=== PATIENT | male | born 1940 | race American Indian/Alaskan Native ===

== ENCOUNTER 2018-01-24 10:15 | Day surgery (SDC) | payer MEDICARE, MEDICAID ==
[2017-12-22 20:41] VITALS: BMI 24.0
[~2018-01-24 10:15] MED LIST: Lidocaine Hydrochloride 5 ML INJ ONE; Midazolam 2 MG/2 ML VIAL ONE; Propofol 10 mg/ml Inj (20 ML) ONE
[2018-01-24] MEDS ORDERED: Gentamicin 80 mg in 0.9% NS 80 MG/100 ML BAG IVPB ONE ×2 (10:47→11:00)
[2018-01-24] MEDS ORDERED: cefTRIAXone 1 gm 1 GM/100 ML BAG IVPB ONE (10:47)
[2018-01-24] MEDS ORDERED: Lidocaine 2% Jelly (Uro-Jet) ONE (10:47)
[2018-01-24] MEDS ORDERED: HYDROmorphone 0.5 mg/0.5 ml ISec IVP PRN (11:43)
[2018-01-24 12:20] LABS: URINE BILIRUBIN NEGATIVE (NEGATIVE); URINE BLOOD 2+ (NEGATIVE); URINE CLARITY Clear (Clear); URINE COLOR Yellow (YELLOW); URINE GLUCOSE (UA) NORMAL (Normal); URINE LEUKOCYTE ESTERASE TRACE Leu/uL (Negative); URINE PROTEIN NEGATIVE (NEGATIVE); URINE UROBILINOGEN NORMAL mg/dL (0.2-1.0)
[2018-01-24 13:08] VITALS: O2SAT 96
[2018-01-24 15:06] VITALS: BP 154/76; PULSE 68; RESP 18; TEMP 97.8
--- NOTE | 2018-01-24 22:02 | OP ---
PROCEDURE DATE: 01/24/2018 PREOPERATIVE DIAGNOSIS: Dysuria. POSTOPERATIVE DIAGNOSES: Benign prostatic hypertrophy and hemorrhagic prostate. PROCEDURE: Cystoscopy. SURGEON: Trevor Wiggins MD DESCRIPTION OF PROCEDURE: The patient was premedicated with 80 mg of gentamicin and 1 g of Rocephin IV piggyback, brought to the OR, and placed under anesthesia in lithotomy position with care taken upon placing him in the stirrups because of previous left knee surgery. Cystoscopy was uneventful. A 22-Jordanian scope was introduced per urethra. The prostate was obstructing and had a hemorrhagic mucosa that was noted. The bladder itself was remarkably normal. There was minimal trabeculation. No tumors or calculi were seen. Both orifices were normal. Initial urine residual of about 100 mL was cleared and sent for urinalysis, culture and sensitivity and cytology. There was minimal oozing of the prostate after the procedure and so, the patient was sent to the recovery room with the Fuller catheter for tamponade, and hopefully this could be removed prior to his discharge later today. The patient tolerated the procedure well. Trevor Wiggins MD
== END 2018-01-24 15:00 | disposition home or self-care (01) ==
LOC: C.SDS 10:15
PROVIDERS: ATTEND Urology
DX: N40.0 Benign prostatic hyperplasia without lower urinary tract symptoms (principal); R30.0 Dysuria; N42.1 Congestion and hemorrhage of prostate

== ENCOUNTER → 2018-07-12 | Outpatient (CLI) | payer MEDICARE, MEDICAID | LOC: C.VASC 10:08 ==

== ENCOUNTER 2018-07-24 09:53 | Outpatient (CLI) | payer MEDICARE, MEDICAID | END 2018-07-24 09:54 | disposition home or self-care (01) | LOC: C.CTH 09:53 ==

== ENCOUNTER 2018-08-06 09:18 | Inpatient (IN) | payer MEDICARE, MEDICAID ==
[2018-08-06 09:47] VITALS: BMI 25.7
[2018-08-06] MEDS ORDERED: Sodium Chloride 0.9% 1,000 ML IV ONE (09:56)
--- NOTE | 2018-08-06 10:15 | C.PDOC ---
History Of Present Illness 78 y/o male brought to ER from group home for evaluation and possible admission for hydration. referred him to the ER because patient has angiogram tomorrow. wanted him to be hydrated for the procedure. Patient states that he has history of stroke in 2009. Patient reports that he has left-sided weakness s/p stroke. He notes that he walks with cane for short periods of time. Denies having fever,chills, CP, and SOB. Time Seen by Provider: 08/06/18 09:40 Chief Complaint (Nursing): Medical Clearance History Per: Patient History/Exam Limitations: no limitations Onset/Duration Of Symptoms: Days Current Symptoms Are (Timing): Still Present Severity: Moderate Past Medical History Reviewed: Historical Data, Nursing Documentation, Vital Signs Vital Signs: Last Vital Signs Temp 97.6 F 08/06/18 09:39 Pulse 81 08/06/18 09:39 Resp 17 08/06/18 09:39 BP 133/68 08/06/18 09:39 Pulse Ox 97 08/06/18 09:39 - Medical History PMH: Anemia, Anxiety, Dementia, Depression, Fractures, HTN, Parkinson's Disease (no tremors), Seizures Denies: Diabetes, Hepatitis, Chronic Kidney Disease, Sexually Transmitted Disease Surgical History: No Surg Hx - [facility] Procedures GROUP PSYCHOTHERAPY (12/22/17) INDIVIDUAL PSYCHOTHERAPY, BEHAVIORAL (06/24/15) INDIVIDUAL PSYCHOTHERAPY, COGNITIVE-BEHAVIORAL (12/22/17) Family History: States: Hypertension - Social History Hx Alcohol Use: Yes Hx Substance Use: No Review Of Systems Except As Marked, All Systems Reviewed And Found Negative. Constitutional: Negative for: Fever, Chills Cardiovascular: Negative for: Chest Pain Respiratory: Negative for: Shortness of Breath Physical Exam - Physical Exam Appears: Non-toxic, No Acute Distress Skin: Normal Color, Warm, Dry Head: Atraumatic, Normacephalic Eye(s): bilateral: Normal Inspection Nose: Normal Oral Mucosa: Moist Neck: Supple Chest: Symmetrical Cardiovascular: Rhythm Regular Respiratory: Normal Breath Sounds, No Rales, No Rhonchi, No Wheezing Gastrointestinal/Abdominal: Normal Exam, Soft, No Tenderness, No Guarding, No Rebound Extremity: Normal ROM Neurological/Psych: Other (left sided weakness,contracted left hand and left foot drop) Gait: Unable To Assess ED Course And Treatment - Laboratory Results Result Diagrams: 08/06/18 10:26 08/06/18 10:26 Lab Interpretation: No Acute Changes ECG: Interpreted By Me ECG Rhythm: Sinus Rhythm, 1st Degree HB, Nonspecific Changes ECG Interpretation: No Acute Changes Rate From EC O2 Sat by Pulse Oximetry: 97 (RA) Pulse Ox Interpretation: Normal - Radiology CXR: Interpreted by Me CXR Interpretation: Yes: No Acute Disease Progress Note: Treated with IVF NSS and rocephin 1 GM IV. Case discussed with Dr Gage who request medical admission for hydration and angiogram tomorrow Reassessment Condition: Unchanged - Physician Consult Information Physician Contacted: Jenaro Garcia Outcome Of Conversation: obs admission Medical Decision Making Medical Decision Making: Plan: --Labs --UA --ECG --CXR --IV Fluids Disposition Discussed With Dr.: Jenaro Garcia Doctor Will See Patient In The: Hospital - Disposition Disposition: HOSPITALIZED Disposition Time: 11:45 Condition: STABLE - POA Present On Arrival: None - Clinical Impression Clinical Impression: Dehydration - PA / EMT/PARAMEDIC / Resident Statement MD/DO has reviewed & agrees with the documentation as recorded. - Scribe Statement The provider has reviewed the documentation as recorded by the Scribe Aldo Mustapha Provider Attestation All medical record entries made by the Scribe were at my direction and personally dictated by me. I have reviewed the chart and agree that the record accurately reflects my personal performance of the history, physical exam, medical decision making, and the department course for this patient. I have also personally directed, reviewed, and agree with the discharge instructions and disposition. Decision To Admit - Pt Status Changed To: Hospital Disposition Of: Observation - . Bed Request Type: Regular Admitting Physician: Jenaro Garcia Patient Diagnosis: Dehydration
[2018-08-06 10:31] LABS: EOS # 0.3 K/uL (0.0-0.7); EOS % 6.1 % (0.0-4.0); HEMOGLOBIN 14.2 g/dL (12.0-18.0); LYMPH # 1.8 K/uL (1.0-4.3); LYMPH % 36.4 % (20.0-40.0); MEAN CELL VOLUME 92.8 fL (80.0-94.0); MEAN CORPUSCULAR HGB CONC 33.4 g/dL (33.0-37.0); MEAN PLATELET VOLUME 7.4 fL (7.2-11.7); MONO # 0.4 K/uL (0.0-0.8); NEUT # 2.4 K/uL (1.8-7.0); NEUT % 48.5 % (50.0-75.0); NRBC % 0.1 % (0.0-2.0); RBC 4.59 Mil/uL (4.40-5.90); RED CELL DISTRIBUTION WIDTH 14.2 % (11.5-14.5); WHITE BLOOD COUNT 4.8 K/uL (4.8-10.8)
[2018-08-06 10:34] LABS: SQUAMOUS EPITHIAL < 1 /hpf (0-5); URINE BACTERIA MOD (<OCC); URINE BILIRUBIN NEGATIVE (NEGATIVE); URINE BLOOD 1+ (NEGATIVE); URINE CLARITY Hazy (Clear); URINE COLOR Yellow (YELLOW); URINE GLUCOSE (UA) 2+ mg/dL (Normal); URINE LEUKOCYTE ESTERASE 3+ Leu/uL (Negative); URINE PROTEIN NEGATIVE (NEGATIVE); URINE UROBILINOGEN NORMAL mg/dL (0.2-1.0)
[2018-08-06 10:37] LABS: INR 1.2; PROTHROMBIN TIME 12.6 SECONDS (9.7-12.2)
[2018-08-06 10:41] LABS: ALB/GLOB RATIO 1.1 (1.0-2.1); ALBUMIN 4.2 g/dL (3.5-5.0); CALCIUM 9.1 mg/dl (8.6-10.4)
[2018-08-06] MEDS ORDERED: cefTRIAXone IV 1 gm in Dextros 50 ML IV ONE (10:43)
[2018-08-06] MEDS ORDERED: Sodium Chloride 0.9% 1,000 ML ONE (11:16)
[2018-08-06] MEDS ORDERED: Sodium Chloride 0.9% 1,000 ML IV SCH ×2 (12:15)
[2018-08-06] MEDS ORDERED: Insulin Detemir 100 units/ml Vial (Levemir) SC SCH (13:00)
--- NOTE | 2018-08-06 13:05 | CP.PCM.HP ---
<Kishan Gutierrez E - Last Filed: 08/06/18 16:49> History of Present Illness - History of Present Illness History of Present Illness: CC: Left toe pain Patient is a poor historian regarding reason for hospitalization HPI: Patient is a 78 year old male with past medical history of CVA (2009) with left-sided weakness, diabetes, seizures, HTN, HLD, BPH, gastritis, depression and anemia, who presents to the ED as per request of vascular surgeon, Dr. Gage. Initially, there was plan by vascular for bilateral LE angiogram outpatient due to PVD. However, due to recent JANETH, decision was made for hospitalization in order to hydrate patient; improve JANETH and perform inpatient angiogram. During this encounter, patient states that he is doing well and has no acute issues. Upon ROS, patient admits to dysuria but denies any symptoms of fever, chills, nausea, vomiting, flank pain, hematuria, chest pain, palpitations, shortness of breath, dizziness, bowel changes. PMHx: CVA (2009) with left-sided weakness, diabetes, seizures, HTN, HLD, BPH, gastritis, depression and anemia, PSHx: Denies FHx: Denies Medications: Insulin sliding scale, lamictal 150mg PO BID, Levemir 16 units Q12HRS, Lexapro 10mg PO daily, Maginex 615mg PO once, metoprolol tartate 25mg PO Q12H, Aluminum & Mg Hyroxide [id number]/5ml, Norvasc 5mg PO daily, Pravastatin 10mg PO HS, Ferrous sulfate 325mg PO BID, Finastride 5mg PO daily, Flomax 0.4mg PO daily, Protonix 40mg PO QD, remeron 15mg PO HS Allergies: NKDA Social Hx: Lives in a half-way, retired diesel truck technician and cook. Tobacco use for 20-30 years (3PPD), former ETOH use during the weekend and denies illicit drug use Present on Admission - Present on Admission Any Indicators Present on Admission: No Review of Systems - Constitutional Constitutional: absent: Chills, Fever, Headache - EENT Eyes: absent: Blurred Vision Ears: absent: Dizziness - Cardiovascular Cardiovascular: absent: Chest Pain, Dyspnea, Dyspnea on Exertion, Leg Edema, Syncope - Respiratory Respiratory: absent: Cough, Dyspnea on Exertion, Wheezing - Gastrointestinal Gastrointestinal: absent: Abdominal Pain, Change in Stool Character, Constipation, Hematochezia, Nausea, Vomiting - Genitourinary Genitourinary: Dysuria - Neurological Neurological: absent: Dizziness, Numbness, Headaches, Weakness - Endocrine Endocrine: absent: Fatigue, Palpitations Past Patient History - Infectious Disease Hx of Infectious Diseases: None - Tetanus Immunizations Tetanus Immunization: Unknown - Past Medical History & Family History Past Medical History?: Yes - Past Social History Smoking Status: Former Smoker - CARDIAC Hx Hypertension: Yes - PULMONARY Hx Respiratory Disorders: No - NEUROLOGICAL Hx Dementia: Yes Hx Parkinson's Disease: Yes (no tremors) Hx Seizures: Yes - HEENT Hx HEENT Problems: No - RENAL Hx Chronic Kidney Disease: No - ENDOCRINE/METABOLIC Hx Endocrine Disorders: Yes Hx Diabetes Mellitus Type 2: Yes ("DUE TO UNDERLYING CONDITION"(NO DIABETIC MED. NOTED)) - HEMATOLOGICAL/ONCOLOGICAL Hx Anemia: Yes - INTEGUMENTARY Hx Dermatological Problems: No - MUSCULOSKELETAL/RHEUMATOLOGICAL Hx Fractures: Yes - GASTROINTESTINAL Hx Gastrointestinal Disorders: Yes Other/Comment: DX: DYSPHAGIA - GENITOURINARY/GYNECOLOGICAL Hx Sexually Transmitted Disorders: No - PSYCHIATRIC Hx Anxiety: Yes Hx Depression: Yes Hx Substance Use: No - SURGICAL HISTORY Hx Surgeries: No - ANESTHESIA Hx Anesthesia: No Meds Allergies/Adverse Reactions: Allergies Allergy/AdvReac Type Severity Reaction Status Date / Time No Known Allergies Allergy Verified 12/22/17 20:41 Physical Exam - Constitutional Appears: No Acute Distress - Head Exam Head Exam: ATRAUMATIC, NORMAL INSPECTION - Eye Exam Eye Exam: EOMI, Normal appearance - ENT Exam ENT Exam: Mucous Membranes Moist - Respiratory Exam Respiratory Exam: Clear to Auscultation Bilateral, NORMAL BREATHING PATTERN. absent: Prolonged Expiratory Phase, Rhonchi, Wheezes, Respiratory Distress - Cardiovascular Exam Cardiovascular Exam: REGULAR RHYTHM, +S1, +S2. absent: Systolic Murmur - GI/Abdominal Exam GI & Abdominal Exam: Normal Bowel Sounds, Soft. absent: Distended, Firm, Tenderness - Extremities Exam Extremities exam: Positive for: normal inspection. Negative for: calf tenderness, pedal edema - Back Exam Back exam: absent: CVA tenderness (L), CVA tenderness (R) Additional comments: Right LE: DP and PT audible with doppler Left LE: DP audible with doppler - Neurological Exam Neurological exam: Alert, Oriented x3 - Psychiatric Exam Psychiatric exam: Normal Affect - Skin Skin Exam: Normal Color Results - Vital Signs Recent Vital Signs: Last Vital Signs Temp 97.6 F 08/06/18 11:40 Pulse 76 08/06/18 11:40 Resp 16 08/06/18 11:40 BP 146/69 08/06/18 11:40 Pulse Ox 97 08/06/18 11:46 - Labs Result Diagrams: 08/06/18 10:26 08/06/18 10:26 Labs: Laboratory Results - last 24 hr 08/06/18 08/06/18 08/06/18 10:26 10:26 10:26 WBC 4.8 RBC 4.59 Hgb 14.2 Hct 42.6 MCV 92.8 MCH 31.0 MCHC 33.4 RDW 14.2 Plt Count 203 MPV 7.4 Neut % (Auto) 48.5 L Lymph % (Auto) 36.4 [place] % (Auto) 8.0 Eos % (Auto) 6.1 H Baso % (Auto) 1.0 Neut # (Auto) 2.4 Lymph # (Auto) 1.8 [place] # (Auto) 0.4 Eos # (Auto) 0.3 Baso # (Auto) 0.0 PT INR Sodium 137 Potassium 4.2 Chloride 104 Carbon Dioxide 28 Anion Gap 10 BUN 20 Creatinine 1.9 H Est GFR ( Amer) 42 Est GFR (Non-Af Amer) 35 POC Glucose (mg/dL) Random Glucose 201 H Calcium 9.1 Total Bilirubin 0.3 AST 23 ALT 17 L Alkaline Phosphatase 82 Total Protein 8.2 Albumin 4.2 Globulin 3.9 Albumin/Globulin Ratio 1.1 Urine Color Yellow Urine Clarity Hazy Urine pH 5.0 Ur Specific [place] 1.009 Urine Protein Negative Urine Glucose (UA) 2+ H Urine Ketones Negative Urine Blood 1+ H Urine Nitrate Negative Urine Bilirubin Negative Urine Urobilinogen Normal Ur Leukocyte Esterase 3+ H Urine WBC (Auto) 153 H Urine RBC (Auto) 3 Ur Squamous Epith Cells < 1 Urine Bacteria Mod H Blood Type Antibody Screen 08/06/18 08/06/18 08/06/18 10:26 10:26 12:23 WBC RBC Hgb Hct MCV MCH MCHC RDW Plt Count MPV Neut % (Auto) Lymph % (Auto) [place] % (Auto) Eos % (Auto) Baso % (Auto) Neut # (Auto) Lymph # (Auto) [place] # (Auto) Eos # (Auto) Baso # (Auto) PT 12.6 H INR 1.2 Sodium Potassium Chloride Carbon Dioxide Anion Gap BUN Creatinine Est GFR ( Amer) Est GFR (Non-Af Amer) POC Glucose (mg/dL) 201 H Random Glucose Calcium Total Bilirubin AST ALT Alkaline Phosphatase Total Protein Albumin Globulin Albumin/Globulin Ratio Urine Color Urine Clarity Urine pH Ur Specific [place] Urine Protein Urine Glucose (UA) Urine Ketones Urine Blood Urine Nitrate Urine Bilirubin Urine Urobilinogen Ur Leukocyte Esterase Urine WBC (Auto) Urine RBC (Auto) Ur Squamous Epith Cells Urine Bacteria Blood Type O POSITIVE Antibody Screen Negative Assessment & Plan (1) PVD (peripheral vascular disease) Assessment and Plan: -Left Hallux pain Consultation: - Vascular, Dr. Gage * B/L LE angiogram 08/07/18 Status: Acute (2) Acute kidney injury Assessment and Plan: GFR: 42 Possibly 2/2 dehydration D51/2NS @ 80mls/hr as per surgery Status: Acute (3) UTI (urinary tract infection) Assessment and Plan: Afebrile Labs: * UA: LE (3+), WBC (153) and nitrite negative * F/u UC Medication: - Rocephin 1gm IV Q24H - Florastor 250mg PO BID Status: Acute (4) HTN (hypertension) Assessment and Plan: Continue home medications: - Norvasc 5mg PO daily - Metoprolol tartate 25mg PO Q12H Status: Acute (5) Diabetes mellitus Assessment and Plan: Accuchecks Levemir 16 units SC Q12H ISS- Low dose Status: Acute (6) History of seizure Assessment and Plan: Continue home medication: - Lamictal 150mg PO BID Status: Acute (7) Depression Assessment and Plan: Lexapro 10mg PO daily Remeron 15mg PO HS Status: Acute (8) BPH (benign prostatic hyperplasia) Assessment and Plan: Flomax 0.4mg PO daily Finastride 5mg PO daily Status: Acute (9) Anemia Assessment and Plan: H/H stable Ferrous sulfate 325mg PO BID Status: Acute (10) Hx of gastritis Assessment and Plan: Protonix 40mg PO daily Status: Acute (11) Hyperlipidemia Assessment and Plan: Crestor 2.5mg PO HS Status: Acute (12) Prophylactic measure Assessment and Plan: GI: Protonix 40mg PO daily DVT: Chemical agent not initiated due angiogram tomorrow All plans and management discussed with Dr. Garcia Status: Acute <MattJenaro ocampo - Last Filed: 08/08/18 18:00> Results - Vital Signs Recent Vital Signs: Last Vital Signs Temp 98 F 08/08/18 16:00 Pulse 58 L 08/08/18 16:00 Resp 20 08/08/18 16:00 BP 149/74 08/08/18 16:00 Pulse Ox 97 08/08/18 16:00 - Labs Result Diagrams: 08/08/18 05:09 08/08/18 05:09 Labs: Laboratory Results - last 24 hr 08/07/18 08/08/18 08/08/18 21:22 05:09 05:09 WBC 5.2 RBC 4.51 Hgb 13.7 Hct 41.3 MCV 91.6 MCH 30.5 MCHC 33.3 RDW 14.3 Plt Count 175 MPV 7.4 Neut % (Auto) 44.8 L Lymph % (Auto) 37.5 [place] % (Auto) 9.3 Eos % (Auto) 7.8 H Baso % (Auto) 0.6 Neut # (Auto) 2.3 Lymph # (Auto) 2.0 [place] # (Auto) 0.5 Eos # (Auto) 0.4 Baso # (Auto) 0.0 Sodium 137 Potassium 4.2 Chloride 108 H Carbon Dioxide 24 Anion Gap 9 L BUN 14 Creatinine 1.5 Est GFR ( Amer) 55 Est GFR (Non-Af Amer) 45 POC Glucose (mg/dL) 157 H Random Glucose 136 H Calcium 9.1 Phosphorus 3.5 Magnesium 1.8 Total Bilirubin 0.3 AST 23 ALT 19 L D Alkaline Phosphatase 72 Total Protein 7.5 Albumin 3.5 Globulin 3.9 Albumin/Globulin Ratio 0.9 L 25-OH Vitamin D Total 08/08/18 08/08/18 08/08/18 05:09 06:49 13:48 WBC RBC Hgb Hct MCV MCH MCHC RDW Plt Count MPV Neut % (Auto) Lymph % (Auto) [place] % (Auto) Eos % (Auto) Baso % (Auto) Neut # (Auto) Lymph # (Auto) [place] # (Auto) Eos # (Auto) Baso # (Auto) Sodium Potassium Chloride Carbon Dioxide Anion Gap BUN Creatinine Est GFR ( Amer) Est GFR (Non-Af Amer) POC Glucose (mg/dL) 113 H 128 H Random Glucose Calcium Phosphorus Magnesium Total Bilirubin AST ALT Alkaline Phosphatase Total Protein Albumin Globulin Albumin/Globulin Ratio 25-OH Vitamin D Total 14.7 L 08/08/18 16:31 WBC RBC Hgb Hct MCV MCH MCHC RDW Plt Count MPV Neut % (Auto) Lymph % (Auto) [place] % (Auto) Eos % (Auto) Baso % (Auto) Neut # (Auto) Lymph # (Auto) [place] # (Auto) Eos # (Auto) Baso # (Auto) Sodium Potassium Chloride Carbon Dioxide Anion Gap BUN Creatinine Est GFR ( Amer) Est GFR (Non-Af Amer) POC Glucose (mg/dL) 114 H Random Glucose Calcium Phosphorus Magnesium Total Bilirubin AST ALT Alkaline Phosphatase Total Protein Albumin Globulin Albumin/Globulin Ratio 25-OH Vitamin D Total Attending/Attestation - Attestation I have personally seen and examined this patient.: Yes I have fully participated in the care of the patient.: Yes I have reviewed all pertinent clinical information: Yes Notes (Text): Seen and examined with the resident Patient has no complain,looks dry He has history of CVA (2009) with left-sided weakness, diabetes, seizures, HTN, HLD, BPH, gastritis, depression and anemia He was brought in for IV hydration to improve his kidney before bilateral LE angiogram . continue hydration follow creatinine
--- NOTE | 2018-08-06 13:25 | RAD ---
Date of service: 08/06/2018 PROCEDURE: CHEST RADIOGRAPH, 1 VIEW HISTORY: SOB COMPARISON: None available. FINDINGS: LUNGS: Clear. PLEURA: No pneumothorax or pleural fluid seen. CARDIOVASCULAR: No aortic atherosclerotic calcification present. Normal. OSSEOUS STRUCTURES: No significant abnormalities. VISUALIZED UPPER ABDOMEN: Normal. OTHER FINDINGS: None. IMPRESSION: No active disease.
[2018-08-06] MEDS: Dextrose 5%/0.45% NS 1,000 ML IV SCH (15:07)
[2018-08-06] MEDS: Acetylcysteine 20% Inhal Soln (4ml) PO SCH (15:09)
[2018-08-06 16:03] VITALS: RESP 20
[2018-08-06] MEDS: (Novolog) Insulin Aspart, Recombinant 100 u/ml 10 ml vial SC SCH ×2 (17:10→21:49)
[2018-08-06] MEDS: Saccharomyces Boulardi 250 mg Cap PO SCH (17:43)
[2018-08-06] MEDS: Rosuvastatin Calcium 2.5 mg Tab PO SCH (22:00)
[2018-08-07] MEDS: Acetylcysteine 20% Inhal Soln (4ml) PO SCH ×3 (03:23→23:15)
[2018-08-07] MEDS: Dextrose 5%/0.45% NS 1,000 ML IV SCH (03:24)
[2018-08-07 06:57] LABS: ALBUMIN 3.7 g/dL (3.5-5.0); CALCIUM 8.9 mg/dl (8.6-10.4)
[2018-08-07 07:07] LABS: BASO % 0.6 % (0.0-2.0); EOS # 0.4 K/uL (0.0-0.7); EOS % 7.6 % (0.0-4.0); HEMOGLOBIN 13.6 g/dL (12.0-18.0); LYMPH # 2.1 K/uL (1.0-4.3); LYMPH % 40.5 % (20.0-40.0); MEAN CELL VOLUME 91.9 fL (80.0-94.0); MEAN CORPUSCULAR HEMOGLOBIN 30.7 pg (27.0-31.0); MEAN CORPUSCULAR HGB CONC 33.4 g/dL (33.0-37.0); MEAN PLATELET VOLUME 7.3 fL (7.2-11.7); MONO # 0.5 K/uL (0.0-0.8); MONO % 9.9 % (0.0-10.0); NEUT # 2.2 K/uL (1.8-7.0); NEUT % 41.4 % (50.0-75.0); NRBC % 0.1 % (0.0-2.0); RBC 4.41 Mil/uL (4.40-5.90); RED CELL DISTRIBUTION WIDTH 13.9 % (11.5-14.5); WHITE BLOOD COUNT 5.3 K/uL (4.8-10.8)
[2018-08-07] MEDS: (Novolog) Insulin Aspart, Recombinant 100 u/ml 10 ml vial SC SCH ×4 (07:54→21:54)
[2018-08-07] MEDS ORDERED: Pneumococcal 23-Valent Vaccine IM ONE (10:00)
[2018-08-07] MEDS: Vitamin B Complex/Vitamin C Tab PO SCH (10:07)
[2018-08-07] MEDS: Saccharomyces Boulardi 250 mg Cap PO SCH ×2 (10:07→18:27)
[2018-08-07] MEDS: Insulin Detemir 100 units/ml Vial (Levemir) SC SCH ×2 (10:08→22:16)
[2018-08-07] MEDS: Pantoprazole 40 mg EC Tab PO SCH (10:08)
--- NOTE | 2018-08-07 10:44 | CP.PCM.PN ---
Subjective - Date & Time of Evaluation Date of Evaluation: 08/07/18 Time of Evaluation: 10:43 - Subjective Subjective: procedure rescheduled due to equipment issues on for tomorrow Objective - Vital Signs/Intake and Output Vital Signs (last 24 hours): Temp Pulse Resp BP Pulse Ox 98.1 F 73 20 150/72 96 08/07/18 07:00 08/07/18 07:00 08/07/18 07:00 08/07/18 10:05 08/07/18 07:00 Intake and Output: 08/07/18 08/07/18 06:59 18:59 Intake Total 1710 Output Total 1050 Balance 660 - Medications Medications: Current Medications Amlodipine Besylate (Norvasc) 5 mg PO DAILY [facility] Last Admin: 08/07/18 10:05 Dose: 5 mg Escitalopram Oxalate (Lexapro) 10 mg PO DAILY [facility] Last Admin: 08/07/18 10:08 Dose: Not Given Ferrous Sulfate (Feosol) 325 mg PO BID [facility] Last Admin: 08/07/18 10:07 Dose: Not Given Ceftriaxone Sodium (Rocephin Iv 1 Gm Duplex) 50 mls @ 100 mls/hr IVPB DAILY [facility]; Protocol Dextrose/Sodium Chloride (Dextrose 5%/0.45% Ns 1000 Ml) 1,000 mls @ 80 mls/hr IV .[id number] [facility] Last Admin: 08/07/18 03:24 Dose: 80 mls/hr Insulin Aspart (Novolog) 0 unit SC ACHS [facility]; Protocol Last Admin: 08/07/18 07:54 Dose: Not Given Insulin Detemir (Levemir) 16 unit SC Q12H [facility] Last Admin: 08/07/18 10:08 Dose: Not Given Lamotrigine (Lamictal) 100 mg PO BID [facility] Last Admin: 08/07/18 10:07 Dose: Not Given Lamotrigine (Lamictal) 50 mg PO BID [facility] Last Admin: 08/07/18 10:07 Dose: Not Given Metoprolol Tartrate (Lopressor) 25 mg PO Q12 [facility] Last Admin: 08/07/18 10:05 Dose: 25 mg Mirtazapine (Remeron) 15 mg PO HS [facility] Last Admin: 08/06/18 21:59 Dose: 15 mg Pantoprazole Sodium (Protonix Ec Tab) 40 mg PO DAILY [facility] Last Admin: 08/07/18 10:08 Dose: Not Given Rosuvastatin Calcium (Crestor) 2.5 mg PO HS [facility] Last Admin: 08/06/18 22:00 Dose: 2.5 mg Saccharomyces Boulardii (Florastor) 250 mg PO BID [facility] Last Admin: 08/07/18 10:07 Dose: Not Given Tamsulosin HCl (Flomax) 0.4 mg PO DAILY [facility] Last Admin: 08/07/18 10:07 Dose: Not Given Vitamin B Complex/Vitamin C (Berocca) 1 tab PO DAILY [facility] Last Admin: 08/07/18 10:07 Dose: Not Given - Labs Labs: 08/07/18 06:31 08/07/18 06:31 PT 12.6 SECONDS (9.7-12.2) H 08/06/18 10:26 INR 1.2 08/06/18 10:26
--- NOTE | 2018-08-07 10:54 | CP.PCM.PN ---
<Rachel Lujan P - Last Filed: 08/07/18 21:05> Subjective - Date & Time of Evaluation Date of Evaluation: 08/07/18 Time of Evaluation: 09:00 - Subjective Subjective: Progress note for Dr. Garcia. Patient seen and examined at bedside. Angiogram rescheduled for tomorrow. Patient has no complaints at the time of exam. States he is eating well, voiding and stooling. Denies chest pain, SOB, nausea, vomiting, abdominal pain, d iarrhea, extremity pain, headache. Objective - Vital Signs/Intake and Output Vital Signs (last 24 hours): Temp Pulse Resp BP Pulse Ox 98.1 F 73 20 150/72 96 08/07/18 07:00 08/07/18 07:00 08/07/18 07:00 08/07/18 10:05 08/07/18 07:00 Intake and Output: 08/07/18 08/07/18 06:59 18:59 Intake Total 1710 Output Total 1050 Balance 660 - Medications Medications: Current Medications Amlodipine Besylate (Norvasc) 5 mg PO DAILY [facility] Last Admin: 08/07/18 10:05 Dose: 5 mg Escitalopram Oxalate (Lexapro) 10 mg PO DAILY [facility] Last Admin: 08/07/18 10:08 Dose: Not Given Ferrous Sulfate (Feosol) 325 mg PO BID [facility] Last Admin: 08/07/18 10:07 Dose: Not Given Ceftriaxone Sodium (Rocephin Iv 1 Gm Duplex) 50 mls @ 100 mls/hr IVPB DAILY [facility]; Protocol Dextrose/Sodium Chloride (Dextrose 5%/0.45% Ns 1000 Ml) 1,000 mls @ 80 mls/hr IV .[id number] [facility] Last Admin: 08/07/18 03:24 Dose: 80 mls/hr Insulin Aspart (Novolog) 0 unit SC ACHS [facility]; Protocol Last Admin: 08/07/18 07:54 Dose: Not Given Insulin Detemir (Levemir) 16 unit SC Q12H [facility] Last Admin: 08/07/18 10:08 Dose: Not Given Lamotrigine (Lamictal) 100 mg PO BID [facility] Last Admin: 08/07/18 10:07 Dose: Not Given Lamotrigine (Lamictal) 50 mg PO BID [facility] Last Admin: 08/07/18 10:07 Dose: Not Given Metoprolol Tartrate (Lopressor) 25 mg PO Q12 [facility] Last Admin: 08/07/18 10:05 Dose: 25 mg Mirtazapine (Remeron) 15 mg PO HS [facility] Last Admin: 08/06/18 21:59 Dose: 15 mg Pantoprazole Sodium (Protonix Ec Tab) 40 mg PO DAILY [facility] Last Admin: 08/07/18 10:08 Dose: Not Given Rosuvastatin Calcium (Crestor) 2.5 mg PO HS [facility] Last Admin: 08/06/18 22:00 Dose: 2.5 mg Saccharomyces Boulardii (Florastor) 250 mg PO BID [facility] Last Admin: 08/07/18 10:07 Dose: Not Given Tamsulosin HCl (Flomax) 0.4 mg PO DAILY [facility] Last Admin: 08/07/18 10:07 Dose: Not Given Vitamin B Complex/Vitamin C (Berocca) 1 tab PO DAILY [facility] Last Admin: 08/07/18 10:07 Dose: Not Given - Labs Labs: 08/07/18 06:31 08/07/18 06:31 PT 12.6 SECONDS (9.7-12.2) H 08/06/18 10:26 INR 1.2 08/06/18 10:26 - Constitutional Appears: Non-toxic, No Acute Distress - Head Exam Head Exam: ATRAUMATIC, NORMOCEPHALIC - Eye Exam Eye Exam: EOMI, Normal appearance - ENT Exam ENT Exam: Mucous Membranes Moist - Neck Exam Neck Exam: Full ROM, Normal Inspection - Respiratory Exam Respiratory Exam: Clear to Ausculation Bilateral. absent: Rales, Rhonchi, Wheezes - Cardiovascular Exam Cardiovascular Exam: REGULAR RHYTHM, +S1, +S2 - GI/Abdominal Exam GI & Abdominal Exam: Soft, Normal Bowel Sounds. absent: Distended, Firm, Guarding, Rigid, Tenderness - Extremities Exam Extremities Exam: absent: Calf Tenderness, Full ROM (L sided residual weakness from previous CVA), Normal Inspection (LUE contracted), Pedal Edema Additional comments: Right DP palpable, Left DP not palpable - Neurological Exam Neurological Exam: Alert, Awake, Oriented x3 - Psychiatric Exam Psychiatric exam: Normal Affect, Normal Mood - Skin Skin Exam: Dry, Intact, Normal Color, Warm Assessment and Plan - Assessment and Plan (Free Text) Plan: (1) PVD (peripheral vascular disease) Assessment and Plan: -Left Hallux pain Consultation: - Vascular, Dr. Gage * B/L LE angiogram rescheduled for 08/08/18 Status: Acute (2) Acute kidney injury Assessment and Plan: GFR: 42 Possibly 2/2 dehydration NS @ 80mls/hr Mucomyst Q6H F/u renal US: Echogenic renal parenchyma may be seen in the setting of medical renal disease. 5 mm nonobstructing right lower pole renal calculus. No obstructing calculus or hydronephrosis identified. (see full report) F/u Echo Consult * Nephro, Dr. Ibarra Status: Acute (3) UTI (urinary tract infection) Assessment and Plan: Afebrile Labs: * UA: LE (3+), WBC (153) and nitrite negative * UCx: gram neg heather Medication: - Rocephin 1gm IV Q24H - Florastor 250mg PO BID Status: Acute (4) HTN (hypertension) Assessment and Plan: Continue home medications: - Norvasc 5mg PO daily - Metoprolol tartate 25mg PO Q12H Status: Acute (5) Diabetes mellitus Assessment and Plan: Accuchecks Levemir 16 units SC Q12H ISS- Low dose Status: Acute (6) History of seizure Assessment and Plan: Continue home medication: - Lamictal 150mg PO BID Status: Acute (7) Depression Assessment and Plan: Lexapro 10mg PO daily Remeron 15mg PO HS Status: Acute (8) BPH (benign prostatic hyperplasia) Assessment and Plan: Flomax 0.4mg PO daily Finastride 5mg PO daily Status: Acute (9) Anemia Assessment and Plan: H/H stable Ferrous sulfate 325mg PO BID Status: Acute (10) Hx of gastritis Assessment and Plan: Protonix 40mg PO daily Status: Acute (11) Hyperlipidemia Assessment and Plan: Crestor 2.5mg PO HS Status: Acute (12) Prophylactic measure Assessment and Plan: GI: Protonix 40mg PO daily DVT: Chemical agent not initiated due angiogram tomorrow NPO after MN for angiogram Case discussed with Dr. Garcia. Rachel Lujan PGY-1 <Jenaro Garcia - Last Filed: 08/08/18 17:53> Objective - Vital Signs/Intake and Output Vital Signs (last 24 hours): Temp Pulse Resp BP Pulse Ox 98 F 58 L 20 149/74 97 08/08/18 16:00 08/08/18 16:00 08/08/18 16:00 08/08/18 16:00 08/08/18 16:00 Intake and Output: 08/08/18 08/08/18 06:59 18:59 Intake Total 640 Output Total 400 Balance 240 - Medications Medications: Current Medications Acetylcysteine (Acetylcysteine 20%) 4 ml INH RQ6 [facility] Last Admin: 08/08/18 13:25 Dose: Not Given Acetylcysteine (Acetylcysteine 20%) 6 ml PO Q12H [facility] Stop: 08/08/18 23:16 Last Admin: 08/08/18 10:39 Dose: Not Given Albuterol/Ipratropium (Duoneb 3 Mg/0.5 Mg (3 Ml) Ud) 3 ml INH RQ6 [facility] Last Admin: 08/08/18 13:25 Dose: Not Given Amlodipine Besylate (Norvasc) 5 mg PO DAILY [facility] Last Admin: 08/08/18 10:41 Dose: Not Given Clopidogrel Bisulfate (Plavix) 75 mg PO DAILY [facility] Docusate Sodium (Colace) 100 mg PO BID [facility] Escitalopram Oxalate (Lexapro) 10 mg PO DAILY [facility] Last Admin: 08/08/18 10:40 Dose: Not Given Ferrous Sulfate (Feosol) 325 mg PO BID [facility] Last Admin: 08/08/18 10:39 Dose: Not Given Sodium Chloride (Sodium Chloride 0.9%) 1,000 mls @ 80 mls/hr IV .[id number] [facility] Last Admin: 08/08/18 04:16 Dose: 80 mls/hr Sodium Chloride (Sodium Chloride 0.9%) 1,000 mls @ 60 mls/hr IV .[id number] [facility] Stop: 08/09/18 14:31 Insulin Aspart (Novolog) 0 unit SC ACHS [facility]; Protocol Last Admin: 08/08/18 17:13 Dose: Not Given Insulin Detemir (Levemir) 16 unit SC Q12H [facility] Last Admin: 08/08/18 10:40 Dose: Not Given Lamotrigine (Lamictal) 100 mg PO BID [facility] Last Admin: 08/08/18 10:39 Dose: Not Given Lamotrigine (Lamictal) 50 mg PO BID [facility] Last Admin: 08/08/18 10:40 Dose: Not Given Metoprolol Tartrate (Lopressor) 25 mg PO Q12 [facility] Last Admin: 08/08/18 10:41 Dose: Not Given Mirtazapine (Remeron) 15 mg PO HS [facility] Last Admin: 08/07/18 22:03 Dose: 15 mg Pantoprazole Sodium (Protonix Ec Tab) 40 mg PO DAILY [facility] Last Admin: 08/08/18 10:42 Dose: Not Given Rosuvastatin Calcium (Crestor) 2.5 mg PO HS [facility] Last Admin: 08/07/18 22:03 Dose: 2.5 mg Saccharomyces Boulardii (Florastor) 250 mg PO BID [facility] Last Admin: 08/08/18 10:39 Dose: Not Given Tamsulosin HCl (Flomax) 0.4 mg PO DAILY [facility] Last Admin: 08/08/18 10:39 Dose: Not Given Vitamin B Complex/Vitamin C (Berocca) 1 tab PO DAILY [facility] Last Admin: 08/08/18 10:39 Dose: Not Given - Labs Labs: 08/08/18 05:09 08/08/18 05:09 PT 12.6 SECONDS (9.7-12.2) H 08/06/18 10:26 INR 1.2 08/06/18 10:26 Attending/Attestation - Attestation I have personally seen and examined this patient.: Yes I have fully participated in the care of the patient.: Yes I have reviewed all pertinent clinical information, including history, physical exam and plan: Yes Notes (Text): seen and examined with the resident continue hydration and mucomyst follow creatinine continue home meds follow renal US,Echo going for LE angiogram- rescheduled for 08/08/18
[2018-08-07] MEDS: cefTRIAXone IV 1 gm in Dextros 50 ML IVPB SCH (11:00)
--- NOTE | 2018-08-07 11:59 | CP.PCM.CON ---
History of Present Illness - History of Present Illness History of Present Illness: Vascular Surgery Consult note for Dr. Gage Patient is a 78 M with [facility] who presents to [facility] for medical optimization prior to bilateral angiography procedure in order to avoid JANETH. Patient states he is feeling well and has no complaints at this time. plan for angiogram discussed and patient is in agreement. all questions answered. Review of Systems - Review of Systems All systems: reviewed and no additional remarkable complaints except (as per HPI) Past Patient History - Infectious Disease Hx of Infectious Diseases: None - Tetanus Immunizations Tetanus Immunization: Unknown - Past Medical History & Family History Past Medical History?: Yes - Past Social History Smoking Status: Former Smoker - CARDIAC Hx Hypertension: Yes - PULMONARY Hx Respiratory Disorders: No - NEUROLOGICAL Hx Dementia: Yes Hx Parkinson's Disease: Yes (no tremors) Hx Seizures: Yes - HEENT Hx HEENT Problems: No - RENAL Hx Chronic Kidney Disease: No - ENDOCRINE/METABOLIC Hx Endocrine Disorders: Yes Hx Diabetes Mellitus Type 2: Yes ("DUE TO UNDERLYING CONDITION"(NO DIABETIC MED. NOTED)) - HEMATOLOGICAL/ONCOLOGICAL Hx Anemia: Yes - INTEGUMENTARY Hx Dermatological Problems: No - MUSCULOSKELETAL/RHEUMATOLOGICAL Hx Fractures: Yes - GASTROINTESTINAL Hx Gastrointestinal Disorders: Yes Other/Comment: DX: DYSPHAGIA - GENITOURINARY/GYNECOLOGICAL Hx Sexually Transmitted Disorders: No - PSYCHIATRIC Hx Anxiety: Yes Hx Depression: Yes Hx Substance Use: No - SURGICAL HISTORY Hx Surgeries: No - ANESTHESIA Hx Anesthesia: No Meds Allergies/Adverse Reactions: Allergies Allergy/AdvReac Type Severity Reaction Status Date / Time No Known Allergies Allergy Verified 12/22/17 20:41 - Medications Medications: Current Medications Amlodipine Besylate (Norvasc) 5 mg PO DAILY [facility] Last Admin: 08/07/18 10:05 Dose: 5 mg Escitalopram Oxalate (Lexapro) 10 mg PO DAILY [facility] Last Admin: 08/07/18 10:08 Dose: Not Given Ferrous Sulfate (Feosol) 325 mg PO BID [facility] Last Admin: 08/07/18 10:07 Dose: Not Given Ceftriaxone Sodium (Rocephin Iv 1 Gm Duplex) 50 mls @ 100 mls/hr IVPB DAILY [facility]; Protocol Last Admin: 08/07/18 11:00 Dose: 100 mls/hr Dextrose/Sodium Chloride (Dextrose 5%/0.45% Ns 1000 Ml) 1,000 mls @ 80 mls/hr IV .[id number] [facility] Last Admin: 08/07/18 03:24 Dose: 80 mls/hr Insulin Aspart (Novolog) 0 unit SC ACHS [facility]; Protocol Last Admin: 08/07/18 11:33 Dose: Not Given Insulin Detemir (Levemir) 16 unit SC Q12H [facility] Last Admin: 08/07/18 10:08 Dose: Not Given Lamotrigine (Lamictal) 100 mg PO BID [facility] Last Admin: 08/07/18 10:07 Dose: Not Given Lamotrigine (Lamictal) 50 mg PO BID [facility] Last Admin: 08/07/18 10:07 Dose: Not Given Metoprolol Tartrate (Lopressor) 25 mg PO Q12 [facility] Last Admin: 08/07/18 10:05 Dose: 25 mg Mirtazapine (Remeron) [address] [facility] Last Admin: 08/06/18 21:59 Dose: 15 mg Pantoprazole Sodium (Protonix Ec Tab) 40 mg PO DAILY [facility] Last Admin: 08/07/18 10:08 Dose: Not Given Rosuvastatin Calcium (Crestor) 2.[address] [facility] Last Admin: 08/06/18 22:00 Dose: 2.5 mg Saccharomyces Boulardii (Florastor) 250 mg PO BID [facility] Last Admin: 08/07/18 10:07 Dose: Not Given Tamsulosin HCl (Flomax) 0.4 mg PO DAILY [facility] Last Admin: 08/07/18 10:07 Dose: Not Given Vitamin B Complex/Vitamin C (Berocca) 1 tab PO DAILY [facility] Last Admin: 08/07/18 10:07 Dose: Not Given Physical Exam - Constitutional Appears: Well, Non-toxic, No Acute Distress - Head Exam Head Exam: ATRAUMATIC, NORMOCEPHALIC - Eye Exam Eye Exam: EOMI - ENT Exam ENT Exam: Mucous Membranes Moist - Respiratory Exam Respiratory Exam: NORMAL BREATHING PATTERN - Cardiovascular Exam Cardiovascular Exam: REGULAR RHYTHM - GI/Abdominal Exam GI & Abdominal Exam: Soft. absent: Distended, Guarding, Tenderness - Extremities Exam Additional comments: decreased DP and PT bilaterally, feet warm and well perfused bilaterally - Neurological Exam Neurological exam: Alert, Oriented x3 - Psychiatric Exam Psychiatric exam: Normal Affect, Normal Mood - Skin Skin Exam: Dry, Intact, Normal Color, Warm Results - Vital Signs Recent Vital Signs: Last Vital Signs Temp 98.1 F 08/07/18 07:00 Pulse 73 08/07/18 07:00 Resp 20 08/07/18 07:00 BP 150/72 08/07/18 10:05 Pulse Ox 96 08/07/18 07:00 - Labs Result Diagrams: 08/07/18 06:31 08/07/18 06:31 Labs: Laboratory Results - last 24 hr 08/06/18 08/06/18 08/06/18 12:23 16:30 21:33 WBC RBC Hgb Hct MCV MCH MCHC RDW Plt Count MPV Neut % (Auto) Lymph % (Auto) Gage % (Auto) Eos % (Auto) Baso % (Auto) Neut # (Auto) Lymph # (Auto) Gage # (Auto) Eos # (Auto) Baso # (Auto) Sodium Potassium Chloride Carbon Dioxide Anion Gap BUN Creatinine Est GFR ( Amer) Est GFR (Non-Af Amer) POC Glucose (mg/dL) 201 H 203 H 153 H Random Glucose Calcium Phosphorus Magnesium Total Bilirubin AST ALT Alkaline Phosphatase Total Protein Albumin Globulin Albumin/Globulin Ratio 08/07/18 08/07/18 08/07/18 06:31 06:31 07:04 WBC 5.3 RBC 4.41 Hgb 13.6 Hct 40.6 MCV 91.9 MCH 30.7 MCHC 33.4 RDW 13.9 Plt Count 180 MPV 7.3 Neut % (Auto) 41.4 L Lymph % (Auto) 40.5 H Gage % (Auto) 9.9 Eos % (Auto) 7.6 H Baso % (Auto) 0.6 Neut # (Auto) 2.2 Lymph # (Auto) 2.1 Gage # (Auto) 0.5 Eos # (Auto) 0.4 Baso # (Auto) 0.0 Sodium 138 Potassium 4.4 Chloride 106 Carbon Dioxide 24 Anion Gap 12 BUN 16 Creatinine 1.7 H Est GFR ( Amer) 48 Est GFR (Non-Af Amer) 39 POC Glucose (mg/dL) 144 H Random Glucose 142 H D Calcium 8.9 Phosphorus 3.0 Magnesium 1.9 Total Bilirubin 0.2 AST 21 ALT 11 L D Alkaline Phosphatase 68 Total Protein 7.4 Albumin 3.7 Globulin 3.7 Albumin/Globulin Ratio 1.0 08/07/18 10:55 WBC RBC Hgb Hct MCV MCH MCHC RDW Plt Count MPV Neut % (Auto) Lymph % (Auto) Gage % (Auto) Eos % (Auto) Baso % (Auto) Neut # (Auto) Lymph # (Auto) Gage # (Auto) Eos # (Auto) Baso # (Auto) Sodium Potassium Chloride Carbon Dioxide Anion Gap BUN Creatinine Est GFR ( Amer) Est GFR (Non-Af Amer) POC Glucose (mg/dL) 148 H Random Glucose Calcium Phosphorus Magnesium Total Bilirubin AST ALT Alkaline Phosphatase Total Protein Albumin Globulin Albumin/Globulin Ratio Assessment & Plan - Assessment and Plan (Free Text) Assessment: 78 M with bilateral PVD in need of bilateral angiography Plan: - plan for angiography 08/07 - pt seen examined and discussed with Dr. Gage - Date & Time Date: 08/06/18 Time: 14:30
[2018-08-07] MEDS: Sodium Chloride 0.9% 1,000 ML IV SCH (15:36)
--- NOTE | 2018-08-07 17:13 | CARD ---
APPROVED REPORT Date of service: 08/06/2018 EKG Measurement Heart [id number] <Conclusion> Sinus rhythm with 1st degree AV block RBBB Left axis deviation Left ventricular hypertrophy with QRS widening Abnormal ECG
--- NOTE | 2018-08-07 18:15 | US ---
Date of service: 08/07/2018 PROCEDURE: Ultrasound of the Kidneys HISTORY: Renal failure COMPARISON: None available. TECHNIQUE: Sonogram of the kidneys. FINDINGS: Examination markedly limited by bowel gas and patient condition/difficulty with positioning. RIGHT KIDNEY: Measures: 9.4 x 5.1 x 5.0 cm. Echogenic renal parenchyma. No obstructing calculus or hydronephrosis identified. 5 mm nonobstructing lower pole calculus. LEFT KIDNEY: Measures: 8.9 x 4.7 x 4.7 cm. Echogenic renal parenchyma. No obstructing calculus or hydronephrosis identified. OTHER FINDINGS: Incidental note is made of cholelithiasis. IMPRESSION: Echogenic renal parenchyma may be seen in the setting of medical renal disease. 5 mm nonobstructing right lower pole renal calculus. No obstructing calculus or hydronephrosis identified. Incidental note is made of cholelithiasis.
[2018-08-07] MEDS ORDERED: Acetylcysteine 20% Inhal Soln (4ml) PO SCH (19:30)
[2018-08-07] MEDS: Rosuvastatin Calcium 2.5 mg Tab PO SCH (22:03)
[2018-08-08] MEDS: Albuterol-Ipratrop 3 mg / 0.5 (3 ml) UD INH SCH ×4 (01:31→20:11)
[2018-08-08] MEDS: Acetylcysteine 20% Inhal Soln (4ml) INH SCH ×4 (01:32→20:11)
[2018-08-08] MEDS: Sodium Chloride 0.9% 1,000 ML IV SCH (04:16)
--- NOTE | 2018-08-08 05:13 | CON ---
DATE: 08/07/2018 NEPHROLOGY CONSULTATION LOCATION: [facility]. HISTORY OF PRESENT ILLNESS: The patient is a 78-year-old male with past medical history of hypertension, diabetes, status post CVA with left hemiparesis (2006), seizures, hyperlipidemia, BPH, and peripheral vascular disease, sent to ED due to finding of arterial stenosis on lower extremity duplex and finding of elevated serum creatinine, Nephrology being consulted for renal insufficiency. The patient currently denies any complaints, has no shortness of breath. Denies being on any pain. At baseline, can walk with difficulty using a quad-legged cane. [facility] The patient denies any nausea, vomiting. He did have some dysuria recently that has resolved. Reports urinating every hour. Status post cystoscopy in the fall of last year which was unremarkable other than showing enlarged prostate. PAST MEDICAL HISTORY: As above. SOCIAL HISTORY: Previous smoker. FAMILY HISTORY: Denies. REVIEW OF SYSTEMS: CONSTITUTIONAL: No fevers or chills. Good appetite. HEENT: No dysphagia. CARDIOVASCULAR: No chest pain or palpitations. RESPIRATORY: Occasional cough. GASTROINTESTINAL: As per HPI. GENITOURINARY: As per HPI. NEUROLOGIC: Left-sided hemiparesis. MUSCULOSKELETAL: Occasional knee pain. Takes Tylenol. SKIN: Denies any foot ulcers. PSYCHIATRIC: Denies any difficulty sleeping. Denies any depression or anxiety. PHYSICAL EXAMINATION: VITAL SIGNS: This afternoon, blood pressure 158/72, heart rate 66, respirations 20, temperature 97.9, O2 sat 96% on room air. GENERAL: No distress. Conversing coherently in full sentences. HEENT: Moist mucous membranes. Nonicteric. NECK: No cervical lymphadenopathy. No elevation in JVD. RESPIRATORY: Lungs clear to auscultation bilaterally. No rales. No rhonchi. No wheezes. CARDIOVASCULAR: Heart sounds S1, S2 normal. No murmurs, no gallops, no rubs. GASTROINTESTINAL: Abdomen soft, nontender, nondistended. GENITOURINARY: No bladder distention. EXTREMITIES: No leg edema. SKIN: Warm. No cyanosis. No ulcers on feet. Distal pulses, faintly palpable bilateral dorsalis pedis pulses. PSYCHIATRIC: Normal mood. Normal affect. NEUROLOGIC: Contracted left upper extremity. Able to move bilateral lower extremities. LABORATORY DATA: CBC: WBC 5.3, hemoglobin 13.6, hematocrit 40.6, platelets 180. Chemistry panel: Sodium 138, potassium 4.4, chloride 106, bicarb 24, BUN 16, creatinine 1.7, glucose 142, calcium 8.9, phosphorus 3, magnesium 1.9. AST 21, ALT 11, albumin 3.7. UA from yesterday, negative protein, 2+ glucose, 1+ blood, 3+ leukocyte esterase, 153 wbc's per high-powered field, 3 rbc's per high-powered field, moderate bacteria. Chest x-ray directly visualized showing clear lungs. Renal ultrasound directly visualized showing some increased echogenicity bilaterally. ASSESSMENT AND PLAN: 1. Chronic kidney disease stage 3A. Serum creatinine 1.5 with estimated glomerular filtration rate 55 mL/minute in 11/2017. Mild increase in serum creatinine may simply be due to prerenal etiology with improvement already seen since yesterday on intravenous fluids. The patient does have increased risk for contrast nephropathy with angiogram in the setting of diabetes and chronic kidney disease. We will continue giving isotonic saline at 80 mL an hour with goal of keeping positive sodium balance to reduce risk of contrast nephropathy. Giving N-acetylcysteine 1200 mg by mouth every 12 hours for contrast prophylaxis. Avoid other nephrotoxic agents. Urinalysis not showing any albuminuria. The patient has history of hypertension, peripheral vascular disease and cerebrovascular accident. Likely has underlying vascular changes causing chronic kidney disease. We will obtain random urine for microalbumin, protein and creatinine. Checking chronic kidney disease parameters with parathyroid hormone and 25-hydroxyvitamin D level. 2. Hypertension. Blood pressure currently elevated, but with the patient getting isotonic saline. Currently on Norvasc 5 mg daily and metoprolol 25 mg two times a day. We will continue the same for now. We will obtain echo to assess left ventricular function since we are giving the patient volume load. 3. Benign prostatic hyperplasia. The patient with suggestive symptoms. Currently on Flomax 0.4 mg daily. We will increased dose to two times a day. 4. Urinary tract infection with gram-negative heather growing in urine culture. We will follow up. Currently on ceftriaxone 1 g daily. No renal dose adjustment needed. Thank you for this referral. We will be following up closely. Ezekiel Ibarra MD
[2018-08-08 05:14] LABS: BASO % 0.6 % (0.0-2.0); EOS # 0.4 K/uL (0.0-0.7); EOS % 7.8 % (0.0-4.0); HEMOGLOBIN 13.7 g/dL (12.0-18.0); LYMPH % 37.5 % (20.0-40.0); MEAN CELL VOLUME 91.6 fL (80.0-94.0); MEAN CORPUSCULAR HEMOGLOBIN 30.5 pg (27.0-31.0); MEAN CORPUSCULAR HGB CONC 33.3 g/dL (33.0-37.0); MEAN PLATELET VOLUME 7.4 fL (7.2-11.7); MONO # 0.5 K/uL (0.0-0.8); MONO % 9.3 % (0.0-10.0); NEUT # 2.3 K/uL (1.8-7.0); NEUT % 44.8 % (50.0-75.0); RBC 4.51 Mil/uL (4.40-5.90); RED CELL DISTRIBUTION WIDTH 14.3 % (11.5-14.5); WHITE BLOOD COUNT 5.2 K/uL (4.8-10.8)
[2018-08-08 05:59] LABS: ALB/GLOB RATIO 0.9 (1.0-2.1); ALBUMIN 3.5 g/dL (3.5-5.0); CALCIUM 9.1 mg/dl (8.6-10.4)
--- NOTE | 2018-08-08 07:46 | RAD ---
Date of service: 08/08/2018 HISTORY: r/o CHF COMPARISON: 08/06/2018 TECHNIQUE: 1 view obtained. FINDINGS: LUNGS: Left lung base is partially obscured by overlying left forearm. Dense consolidation not suspect. Lungs appear clear PLEURA: No significant pleural effusion identified, no pneumothorax apparent. CARDIOVASCULAR: No aortic atherosclerotic calcification present. Normal cardiac size. No pulmonary vascular congestion. OSSEOUS STRUCTURES: No significant abnormalities. VISUALIZED UPPER ABDOMEN: Normal. OTHER FINDINGS: None. IMPRESSION: No active disease.
[2018-08-08] MEDS: (Novolog) Insulin Aspart, Recombinant 100 u/ml 10 ml vial SC SCH ×4 (07:59→21:19)
[2018-08-08] MEDS ORDERED: Lidocaine 2% MPF (5 ml) Inj ONE ×3 (08:14→11:32)
[2018-08-08] MEDS ORDERED: Iodixanol 320 MG/ML 100 ML BOTTLE IV ONE (08:15)
[2018-08-08] MEDS ORDERED: Iodixanol 320 MG/ML 200 ML BOTTLE IV ONE (08:15)
[2018-08-08] MEDS ORDERED: Midazolam 2 MG/2 ML VIAL ONE ×2 (08:44→09:38)
[2018-08-08] MEDS ORDERED: Pneumococcal 23-Valent Vaccine IM ONE (10:00)
[2018-08-08] MEDS: Acetylcysteine 20% Inhal Soln (4ml) PO SCH ×2 (10:39→23:17)
[2018-08-08] MEDS: Vitamin B Complex/Vitamin C Tab PO SCH (10:39)
[2018-08-08] MEDS: Saccharomyces Boulardi 250 mg Cap PO SCH ×2 (10:39→17:36)
[2018-08-08] MEDS: Insulin Detemir 100 units/ml Vial (Levemir) SC SCH ×2 (10:40→21:39)
[2018-08-08] MEDS: Pantoprazole 40 mg EC Tab PO SCH (10:42)
[2018-08-08] MEDS: cefTRIAXone IV 1 gm in Dextros 50 ML IVPB SCH (10:42)
[2018-08-08] MEDS ORDERED: Ciprofloxacin 400mg/200ml D5W 400 MG/200 ML BAG IVPB STA (11:14)
--- NOTE | 2018-08-08 11:58 | CP.PCM.PN ---
Objective - Vital Signs/Intake and Output Vital Signs (last 24 hours): Temp Pulse Resp BP Pulse Ox 97.5 F L 72 20 151/78 H 95 08/08/18 07:30 08/08/18 07:30 08/08/18 07:30 08/08/18 07:54 08/08/18 08:00 Intake and Output: 08/08/18 08/08/18 06:59 18:59 Intake Total 640 Output Total 400 Balance 240 - Medications Medications: Current Medications Acetylcysteine (Acetylcysteine 20%) 4 ml INH RQ6 [facility] Last Admin: 08/08/18 08:37 Dose: Not Given Acetylcysteine (Acetylcysteine 20%) 6 ml PO Q12H [facility] Stop: 08/08/18 23:16 Last Admin: 08/08/18 10:39 Dose: Not Given Albuterol/Ipratropium (Duoneb 3 Mg/0.5 Mg (3 Ml) Ud) 3 ml INH RQ6 [facility] Last Admin: 08/08/18 08:37 Dose: Not Given Amlodipine Besylate (Norvasc) 5 mg PO DAILY [facility] Last Admin: 08/08/18 10:41 Dose: Not Given Docusate Sodium (Colace) 100 mg PO BID [facility] Escitalopram Oxalate (Lexapro) 10 mg PO DAILY [facility] Last Admin: 08/08/18 10:40 Dose: Not Given Ferrous Sulfate (Feosol) 325 mg PO BID [facility] Last Admin: 08/08/18 10:39 Dose: Not Given Sodium Chloride (Sodium Chloride 0.9%) 1,000 mls @ 80 mls/hr IV .[id number] [facility] Last Admin: 08/08/18 04:16 Dose: 80 mls/hr Ciprofloxacin (Cipro 400mg/200ml Dsw) 400 mg in 200 mls @ 133 mls/hr IVPB STAT STA; Protocol Stop: 08/08/18 12:44 Insulin Aspart (Novolog) 0 unit SC ACHS [facility]; Protocol Last Admin: 08/08/18 07:59 Dose: Not Given Insulin Detemir (Levemir) 16 unit SC Q12H [facility] Last Admin: 08/08/18 10:40 Dose: Not Given Lamotrigine (Lamictal) 100 mg PO BID [facility] Last Admin: 08/08/18 10:39 Dose: Not Given Lamotrigine (Lamictal) 50 mg PO BID [facility] Last Admin: 08/08/18 10:40 Dose: Not Given Metoprolol Tartrate (Lopressor) 25 mg PO Q12 [facility] Last Admin: 08/08/18 10:41 Dose: Not Given Mirtazapine (Remeron) 15 mg PO HS [facility] Last Admin: 08/07/18 22:03 Dose: 15 mg Pantoprazole Sodium (Protonix Ec Tab) 40 mg PO DAILY [facility] Last Admin: 08/08/18 10:42 Dose: Not Given Rosuvastatin Calcium (Crestor) 2.5 mg PO HS [facility] Last Admin: 08/07/18 22:03 Dose: 2.5 mg Saccharomyces Boulardii (Florastor) 250 mg PO BID [facility] Last Admin: 08/08/18 10:39 Dose: Not Given Tamsulosin HCl (Flomax) 0.4 mg PO DAILY [facility] Last Admin: 08/08/18 10:39 Dose: Not Given Vitamin B Complex/Vitamin C (Berocca) 1 tab PO DAILY [facility] Last Admin: 08/08/18 10:39 Dose: Not Given - Labs Labs: 08/08/18 05:09 08/08/18 05:09 PT 12.6 SECONDS (9.7-12.2) H 08/06/18 10:26 INR 1.2 08/06/18 10:26
--- NOTE | 2018-08-08 12:15 | PCM.SURG1 ---
Surgeon's Initial Post Op Note - Surgeon's Notes Surgeon: lizzette [employer] Operator: 0 Type of Anesthesia: IV Sedation Anesthesia Administered By: isabelle Pre-Operative Diagnosis: ischemic left foot ulcer Operative Findings: 90% left sfa stenosi. steep bifurcation/unable to cross. second left groin puncture for intervention. mynx Post-Operative Diagnosis: same Operation Performed: aortofemoral angiogram via right groin. selective catherization of left iliac artery. second puncture left sfa. balloon angioplasty/ 6mm stent. mynx closure left groin Specimen/Specimens Removed: 0 Estimated Blood Loss: EBL {In ML}: 65 Date of Surgery/Procedure: 08/08/18 Time of Surgery/Procedure: 12:16
--- NOTE | 2018-08-08 13:39 | RAD ---
PROCEDURE: HISTORY: As above COMPARISON: None TECHNIQUE: Total fluoroscopic time utilized during the procedure: 270.4 seconds ; 37.77 mGy FINDINGS: Submitted images from the current procedure: 8 Please refer to the physician's notes performing the procedure. IMPRESSION: Less than 1 hour fluoroscopic time utilized during performance of the procedure
[2018-08-08] MEDS ORDERED: Sodium Chloride 0.9% 1,000 ML IV SCH (14:30)
--- NOTE | 2018-08-08 14:36 | CP.PCM.PN ---
<Rachel Lujan P - Last Filed: 08/09/18 00:08> Subjective - Date & Time of Evaluation Date of Evaluation: 08/08/18 Time of Evaluation: 07:00 - Subjective Subjective: Progress note for Dr. Garcia. Patient seen and examined prior to angiogram. States he is slightly constipated, otherwise no additional complaints. Denies chest pain, shortness of breath, nausea, vomiting, dysuria, fever and chills. Objective - Vital Signs/Intake and Output Vital Signs (last 24 hours): Temp Pulse Resp BP Pulse Ox 97.5 F L 72 20 151/78 H 95 08/08/18 07:30 08/08/18 07:30 08/08/18 07:30 08/08/18 07:54 08/08/18 08:00 Intake and Output: 08/08/18 08/08/18 06:59 18:59 Intake Total 640 Output Total 400 Balance 240 - Medications Medications: Current Medications Acetylcysteine (Acetylcysteine 20%) 4 ml INH RQ6 [facility] Last Admin: 08/08/18 13:25 Dose: Not Given Acetylcysteine (Acetylcysteine 20%) 6 ml PO Q12H [facility] Stop: 08/08/18 23:16 Last Admin: 08/08/18 10:39 Dose: Not Given Albuterol/Ipratropium (Duoneb 3 Mg/0.5 Mg (3 Ml) Ud) 3 ml INH RQ6 [facility] Last Admin: 08/08/18 13:25 Dose: Not Given Amlodipine Besylate (Norvasc) 5 mg PO DAILY [facility] Last Admin: 08/08/18 10:41 Dose: Not Given Clopidogrel Bisulfate (Plavix) 75 mg PO DAILY [facility] Docusate Sodium (Colace) 100 mg PO BID [facility] Escitalopram Oxalate (Lexapro) 10 mg PO DAILY [facility] Last Admin: 08/08/18 10:40 Dose: Not Given Ferrous Sulfate (Feosol) 325 mg PO BID [facility] Last Admin: 08/08/18 10:39 Dose: Not Given Sodium Chloride (Sodium Chloride 0.9%) 1,000 mls @ 80 mls/hr IV .[id number] [facility] Last Admin: 08/08/18 04:16 Dose: 80 mls/hr Sodium Chloride (Sodium Chloride 0.9%) 1,000 mls @ 60 mls/hr IV .[id number] [facility] Stop: 08/09/18 14:31 Insulin Aspart (Novolog) 0 unit SC ACHS [facility]; Protocol Last Admin: 08/08/18 13:05 Dose: Not Given Insulin Detemir (Levemir) 16 unit SC Q12H [facility] Last Admin: 08/08/18 10:40 Dose: Not Given Lamotrigine (Lamictal) 100 mg PO BID [facility] Last Admin: 08/08/18 10:39 Dose: Not Given Lamotrigine (Lamictal) 50 mg PO BID [facility] Last Admin: 08/08/18 10:40 Dose: Not Given Metoprolol Tartrate (Lopressor) 25 mg PO Q12 [facility] Last Admin: 08/08/18 10:41 Dose: Not Given Mirtazapine (Remeron) [address] [facility] Last Admin: 08/07/18 22:03 Dose: 15 mg Pantoprazole Sodium (Protonix Ec Tab) 40 mg PO DAILY [facility] Last Admin: 08/08/18 10:42 Dose: Not Given Rosuvastatin Calcium (Crestor) 2.[address] [facility] Last Admin: 08/07/18 22:03 Dose: 2.5 mg Saccharomyces Boulardii (Florastor) 250 mg PO BID [facility] Last Admin: 08/08/18 10:39 Dose: Not Given Tamsulosin HCl (Flomax) 0.4 mg PO DAILY [facility] Last Admin: 08/08/18 10:39 Dose: Not Given Vitamin B Complex/Vitamin C (Berocca) 1 tab PO DAILY [facility] Last Admin: 08/08/18 10:39 Dose: Not Given - Labs Labs: 08/08/18 05:09 08/08/18 05:09 PT 12.6 SECONDS (9.7-12.2) H 08/06/18 10:26 INR 1.2 08/06/18 10:26 - Additional Findings Additional findings: - Constitutional Appears: Non-toxic, No Acute Distress - Head Exam Head Exam: ATRAUMATIC, NORMOCEPHALIC - Eye Exam Eye Exam: EOMI, Normal appearance - ENT Exam ENT Exam: Mucous Membranes Moist - Neck Exam Neck Exam: Full ROM, Normal Inspection - Respiratory Exam Respiratory Exam: Clear to Ausculation Bilateral. absent: Rales, Rhonchi, Wheezes - Cardiovascular Exam Cardiovascular Exam: REGULAR RHYTHM, +S1, +S2 - GI/Abdominal Exam GI & Abdominal Exam: Soft, Normal Bowel Sounds. absent: Distended, Firm, Guarding, Rigid, Tenderness - Extremities Exam Extremities Exam: absent: Calf Tenderness, Full ROM (L sided residual weakness from previous CVA), Normal Inspection (LUE contracted), Pedal Edema Additional comments: Right DP palpable, Left DP not palpable - Neurological Exam Neurological Exam: Alert, Awake, Oriented x3 - Psychiatric Exam Psychiatric exam: Normal Affect, Normal Mood - Skin Skin Exam: Dry, Intact, Normal Color, Warm Assessment and Plan - Assessment and Plan (Free Text) Assessment: (1) PVD (peripheral vascular disease) Assessment and Plan: -Left Hallux pain Consultation: - Vascular, Dr. Gage * B/L LE angiogram 08/08/18 * Left iliac artery stented - Medication: * Plavix 75mg QD Status: Acute (2) Acute kidney injury Assessment and Plan: GFR: 42 Possibly 2/2 dehydration NS @ 80mls/hr Mucomyst Q6H renal US: Echogenic renal parenchyma may be seen in the setting of medical renal disease. 5 mm nonobstructing right lower pole renal calculus. No obstructing calculus or hydronephrosis identified. (see full report) Echo: Mild to moderate concentric LVH. EF 60-65%. Trace MR. Mild Pulm HTN Consult * Nephro, Dr. Ibarra Status: Acute (3) UTI (urinary tract infection) Assessment and Plan: Afebrile Labs: * UA: LE (3+), WBC (153) and nitrite negative * UCx: ESBL + klebsiella sensitive to cipro Medication: - Cipro IV 400mg QD started 08/08 - Florastor 250mg PO BID Status: Acute (4) HTN (hypertension) Assessment and Plan: Continue home medications: - Norvasc 5mg PO daily - Metoprolol tartate 25mg PO Q12H Status: Acute (5) Diabetes mellitus Assessment and Plan: Accuchecks Levemir 16 units SC Q12H [facility]- Low dose Status: Acute (6) History of seizure Assessment and Plan: Continue home medication: - Lamictal 150mg PO BID Status: Acute (7) Depression Assessment and Plan: Lexapro 10mg PO daily Remeron 15mg PO HS Status: Acute (8) BPH (benign prostatic hyperplasia) Assessment and Plan: Flomax 0.4mg PO daily Finastride 5mg PO daily Status: Acute (9) Anemia Assessment and Plan: H/H stable Ferrous sulfate 325mg PO BID Status: Acute (10) Hx of gastritis Assessment and Plan: Protonix 40mg PO daily Status: Acute (11) Hyperlipidemia Assessment and Plan: Crestor 2.5mg PO HS Status: Acute (12) Prophylactic measure Assessment and Plan: GI: Protonix 40mg PO daily DVT: Chemical agent not initiated due angiogram Consistent Carb diet Colace 100 BID constipation Case discussed with Dr. Garcia. Rachel Lujan PGY-1 <Jenaro Garcia - Last Filed: 08/09/18 09:38> Objective - Vital Signs/Intake and Output Vital Signs (last 24 hours): Temp Pulse Resp BP Pulse Ox 98.5 F 83 20 172/82 H 95 08/09/18 08:37 08/09/18 08:37 08/09/18 08:37 08/09/18 08:37 08/09/18 08:37 Intake and Output: 08/09/18 08/09/18 06:59 18:59 Intake Total 1700 Output Total 400 Balance 1300 - Medications Medications: Current Medications Acetylcysteine (Acetylcysteine 20%) 4 ml INH RQ6 [facility] Last Admin: 08/09/18 01:02 Dose: 4 ml Albuterol/Ipratropium (Duoneb 3 Mg/0.5 Mg (3 Ml) Ud) 3 ml INH RQ6 [facility] Last Admin: 08/09/18 08:15 Dose: 3 ml Amlodipine Besylate (Norvasc) 5 mg PO DAILY [facility] Last Admin: 08/08/18 10:41 Dose: Not Given Clopidogrel Bisulfate (Plavix) 75 mg PO DAILY [facility] Docusate Sodium (Colace) 100 mg PO BID [facility] Last Admin: 08/08/18 19:00 Dose: 100 mg Escitalopram Oxalate (Lexapro) 10 mg PO DAILY [facility] Last Admin: 08/08/18 10:40 Dose: Not Given Ferrous Sulfate (Feosol) 325 mg PO BID [facility] Last Admin: 08/08/18 18:00 Dose: 325 mg Insulin Aspart (Novolog) 0 unit SC [facility]; Protocol Last Admin: 08/09/18 08:30 Dose: Not Given Insulin Detemir (Levemir) 16 unit SC Q12H [facility] Last Admin: 08/08/18 21:39 Dose: Not Given Lamotrigine (Lamictal) 100 mg PO BID [facility] Last Admin: 08/08/18 17:36 Dose: 100 mg Lamotrigine (Lamictal) 50 mg PO BID [facility] Last Admin: 08/08/18 17:36 Dose: 50 mg Metoprolol Tartrate (Lopressor) 25 mg PO Q12 [facility] Last Admin: 08/08/18 21:45 Dose: 25 mg Mirtazapine (Remeron) 15 mg PO HS [facility] Last Admin: 08/08/18 22:26 Dose: 15 mg Pantoprazole Sodium (Protonix Ec Tab) 40 mg PO DAILY [facility] Last Admin: 08/08/18 10:42 Dose: Not Given Rosuvastatin Calcium (Crestor) 2.5 mg PO HS [facility] Last Admin: 08/08/18 21:39 Dose: 2.5 mg Saccharomyces Boulardii (Florastor) 250 mg PO BID [facility] Last Admin: 08/08/18 17:36 Dose: 250 mg Tamsulosin HCl (Flomax) 0.4 mg PO DAILY [facility] Last Admin: 08/08/18 10:39 Dose: Not Given Vitamin B Complex/Vitamin C (Berocca) 1 tab PO DAILY [facility] Last Admin: 08/08/18 10:39 Dose: Not Given - Labs Labs: 08/09/18 06:53 08/09/18 06:53 PT 12.6 SECONDS (9.7-12.2) H 08/06/18 10:26 INR 1.2 08/06/18 10:26 Attending/Attestation - Attestation I have personally seen and examined this patient.: Yes I have fully participated in the care of the patient.: Yes I have reviewed all pertinent clinical information, including history, physical exam and plan: Yes Notes (Text): seen and examined with the resident Patient had left lower extremities angiogram and left SFA stent Continue plavix and home meds continue IV hydration and follow creatinine Urine positive for Klebsilla ESBL,no fever,no leukocytosis,no obstruction on US of kidneys.Not symptomatic d/c tomorrow
--- NOTE | 2018-08-08 18:46 | CP.PCM.PN ---
Subjective - Date & Time of Evaluation Date of Evaluation: 08/08/18 Time of Evaluation: 14:00 - Subjective Subjective: Patient seen after lower ext angiogram/stent procedure; still drowsy; Objective - Vital Signs/Intake and Output Vital Signs (last 24 hours): Temp Pulse Resp BP Pulse Ox 98 F 58 L 20 149/74 97 08/08/18 16:00 08/08/18 16:00 08/08/18 16:00 08/08/18 16:00 08/08/18 16:00 Intake and Output: 08/08/18 08/08/18 06:59 18:59 Intake Total 640 Output Total 400 Balance 240 - Medications Medications: Current Medications Acetylcysteine (Acetylcysteine 20%) 4 ml INH RQ6 [facility] Last Admin: 08/08/18 13:25 Dose: Not Given Acetylcysteine (Acetylcysteine 20%) 6 ml PO Q12H [facility] Stop: 08/08/18 23:16 Last Admin: 08/08/18 10:39 Dose: Not Given Albuterol/Ipratropium (Duoneb 3 Mg/0.5 Mg (3 Ml) Ud) 3 ml INH RQ6 [facility] Last Admin: 08/08/18 13:25 Dose: Not Given Amlodipine Besylate (Norvasc) 5 mg PO DAILY [facility] Last Admin: 08/08/18 10:41 Dose: Not Given Clopidogrel Bisulfate (Plavix) 75 mg PO DAILY [facility] Docusate Sodium (Colace) 100 mg PO BID [facility] Escitalopram Oxalate (Lexapro) 10 mg PO DAILY [facility] Last Admin: 08/08/18 10:40 Dose: Not Given Ferrous Sulfate (Feosol) 325 mg PO BID [facility] Last Admin: 08/08/18 10:39 Dose: Not Given Sodium Chloride (Sodium Chloride 0.9%) 1,000 mls @ 60 mls/hr IV .[id number] [facility] Stop: 08/09/18 14:31 Insulin Aspart (Novolog) 0 unit SC ACHS [facility]; Protocol Last Admin: 08/08/18 17:13 Dose: Not Given Insulin Detemir (Levemir) 16 unit SC Q12H [facility] Last Admin: 08/08/18 10:40 Dose: Not Given Lamotrigine (Lamictal) 100 mg PO BID [facility] Last Admin: 08/08/18 17:36 Dose: 100 mg Lamotrigine (Lamictal) 50 mg PO BID [facility] Last Admin: 08/08/18 17:36 Dose: 50 mg Metoprolol Tartrate (Lopressor) 25 mg PO Q12 [facility] Last Admin: 08/08/18 10:41 Dose: Not Given Mirtazapine (Remeron) 15 mg PO HS [facility] Last Admin: 08/07/18 22:03 Dose: 15 mg Pantoprazole Sodium (Protonix Ec Tab) 40 mg PO DAILY [facility] Last Admin: 08/08/18 10:42 Dose: Not Given Rosuvastatin Calcium (Crestor) 2.5 mg PO HS [facility] Last Admin: 08/07/18 22:03 Dose: 2.5 mg Saccharomyces Boulardii (Florastor) 250 mg PO BID [facility] Last Admin: 08/08/18 17:36 Dose: 250 mg Tamsulosin HCl (Flomax) 0.4 mg PO DAILY [facility] Last Admin: 08/08/18 10:39 Dose: Not Given Vitamin B Complex/Vitamin C (Berocca) 1 tab PO DAILY [facility] Last Admin: 08/08/18 10:39 Dose: Not Given - Labs Labs: 08/08/18 05:09 08/08/18 05:09 PT 12.6 SECONDS (9.7-12.2) H 08/06/18 10:26 INR 1.2 08/06/18 10:26 - Constitutional Appears: Non-toxic, No Acute Distress - Eye Exam Eye Exam: Normal appearance - ENT Exam ENT Exam: Mucous Membranes Moist - Respiratory Exam Respiratory Exam: Clear to Ausculation Bilateral. absent: Respiratory Distress - Cardiovascular Exam Cardiovascular Exam: RRR, +S1, +S2 - GI/Abdominal Exam GI & Abdominal Exam: Soft. absent: Distended - Extremities Exam Additional comments: no leg edema; - Neurological Exam Neurological Exam: Alert, Awake - Psychiatric Exam Psychiatric exam: absent: Agitated - Skin Skin Exam: Warm. absent: Cyanosis Assessment and Plan (1) CKD (chronic kidney disease), stage III Assessment & Plan: Renal function improved with IVF; non-proteinuric kidney disease likely due to underlying vascular disease; will monitor renal function s/p IV dye load; keeping gentle IVF w/ NS at 60 cc/hr; Status: Acute (2) Hypertensive CKD (chronic kidney disease) Assessment & Plan: BP elevated but patient getting intravascular volume; continue norvasc 5 and metoprolol 25 bid; Status: Acute
--- NOTE | 2018-08-08 21:09 | CARD ---
APPROVED REPORT Date of service: 08/08/2018 EXAM: Two-dimensional and M-mode echocardiogram with Doppler and color Doppler. Other Information Quality : Technically LimitedRhythm : Technically limited study due to TDS, body habitus. INDICATION CVA/TIA renal faillure RISK FACTORS Hypertension Hyperlipidemia Diabetes 2D DIMENSIONS IVSd0.7 (0.7-1.1cm)Aortic Root (2D)3.4 (2.0-3.7cm) LVDd5.0 (3.9-5.9cm)PWd0.8 (0.7-1.1cm) LA Qaterm95 (18-58mL)LVDs3.1 (2.5-4.0cm) FS (%) 36.8 %LVEF (%)66.4 (>50%) LVEF (Saleh's)60 %IVC0.00 cm M-Mode DIMENSIONS Left Atrium (MM)4.26 (2.5-4.0cm)IVSd0.96 (0.7-1.1cm) Aortic Root3.51 (2.2-3.7cm)LVDd5.75 (4.0-5.6cm) Aortic Cusp Exc.1.84 (1.5-2.0cm)PWd1.00 (0.7-1.1cm) FS (%) 38 %LVDs3.58 (2.0-3.8cm) LVEF (%)67 (>50%) Mitral Valve MV E Torwslyc30.8cm/sMV A Scugfesi16.0cm/sE/A ratio0.6 TDI Lateral E' Peak V4.35cm/sMedial E' Peak V3.83cm/sE/Lateral E'11.7 E/Medial E'13.3 Tricuspid Valve TR Peak [id number]/sTR Peak Gr.[id number] LEFT VENTRICLE The left ventricle is normal size. There is mild to moderate concentric left ventricular hypertrophy. Left ventricle systolic function is normal. The Ejection Fraction is 60-65%. There is normal LV segmental wall motion. Transmitral Doppler flow pattern is Grade I-abnormal relaxation pattern. There is no ventricular septal defect visualized. RIGHT VENTRICLE The right ventricle is normal size. The right ventricular systolic function is normal. ATRIA The left atrium is mildly dilated. The right atrium size is normal. AORTIC VALVE The aortic valve is mildly sclerotic. The aortic valve is tri-cuspid. No aortic regurgitation is present. There is no aortic valvular stenosis. MITRAL VALVE Mitral annular calcification is borderline. There is no evidence of mitral valve prolapse. Mitral regurgitation is trace. TRICUSPID VALVE The tricuspid valve is normal in structure. There is trace to mild tricuspid regurgitation. Right ventricular systolic pressure is estimated at 30-40 mmHg. There is mild pulmonary hypertension. PULMONIC VALVE The pulmonic valve is not well visualized. There is trace pulmonic valvular regurgitation. GREAT VESSELS The aortic root is normal in size. The ascending aorta is normal in size. The IVC is normal in size and collapses >50% with inspiration. PERICARDIAL EFFUSION There is no pericardial effusion. <Conclusion> There is mild to moderate concentric left ventricular hypertrophy. Left ventricle systolic function is normal. The Ejection Fraction is 60-65%. Mitral regurgitation is trace. There is mild pulmonary hypertension.
[2018-08-08] MEDS: Rosuvastatin Calcium 2.5 mg Tab PO SCH (21:39)
[2018-08-09] MEDS: Acetylcysteine 20% Inhal Soln (4ml) INH SCH ×4 (01:02→19:35)
[2018-08-09] MEDS: Albuterol-Ipratrop 3 mg / 0.5 (3 ml) UD INH SCH ×4 (01:03→19:35)
[2018-08-09 07:22] LABS: BASO % 0.4 % (0.0-2.0); EOS # 0.2 K/uL (0.0-0.7); EOS % 3.8 % (0.0-4.0); HEMOGLOBIN 13.5 g/dL (12.0-18.0); LYMPH # 1.7 K/uL (1.0-4.3); LYMPH % 26.2 % (20.0-40.0); MEAN CELL VOLUME 91.8 fL (80.0-94.0); MEAN CORPUSCULAR HGB CONC 33.8 g/dL (33.0-37.0); MEAN PLATELET VOLUME 7.3 fL (7.2-11.7); MONO # 0.7 K/uL (0.0-0.8); MONO % 10.9 % (0.0-10.0); NEUT # 3.8 K/uL (1.8-7.0); NEUT % 58.7 % (50.0-75.0); RBC 4.35 Mil/uL (4.40-5.90); RED CELL DISTRIBUTION WIDTH 13.9 % (11.5-14.5); WHITE BLOOD COUNT 6.6 K/uL (4.8-10.8)
[2018-08-09 07:39] LABS: ALBUMIN 3.8 g/dL (3.5-5.0); CALCIUM 8.9 mg/dl (8.6-10.4)
[2018-08-09] MEDS: (Novolog) Insulin Aspart, Recombinant 100 u/ml 10 ml vial SC SCH ×3 (08:30→17:43)
[2018-08-09 08:37] VITALS: O2SAT 95
--- NOTE | 2018-08-09 09:01 | CP.PCM.PN ---
Subjective - Date & Time of Evaluation Date of Evaluation: 08/09/18 Time of Evaluation: 07:22 - Subjective Subjective: vascular Surgery: Too Patient seen and examined at bedside. Patient states he is feeling well with no pain in his groin bilaterally or his left foot. 12 point ROS negative Objective - Vital Signs/Intake and Output Vital Signs (last 24 hours): Temp Pulse Resp BP Pulse Ox 98.5 F 83 20 172/82 H 95 08/09/18 08:37 08/09/18 08:37 08/09/18 08:37 08/09/18 08:37 08/09/18 08:37 Intake and Output: 08/09/18 08/09/18 06:59 18:59 Intake Total 1700 Output Total 400 Balance 1300 - Medications Medications: Current Medications Acetylcysteine (Acetylcysteine 20%) 4 ml INH RQ6 [facility] Last Admin: 08/09/18 01:02 Dose: 4 ml Albuterol/Ipratropium (Duoneb 3 Mg/0.5 Mg (3 Ml) Ud) 3 ml INH RQ6 [facility] Last Admin: 08/09/18 08:15 Dose: 3 ml Amlodipine Besylate (Norvasc) 5 mg PO DAILY [facility] Last Admin: 08/08/18 10:41 Dose: Not Given Clopidogrel Bisulfate (Plavix) 75 mg PO DAILY [facility] Docusate Sodium (Colace) 100 mg PO BID [facility] Last Admin: 08/08/18 19:00 Dose: 100 mg Escitalopram Oxalate (Lexapro) 10 mg PO DAILY [facility] Last Admin: 08/08/18 10:40 Dose: Not Given Ferrous Sulfate (Feosol) 325 mg PO BID [facility] Last Admin: 08/08/18 18:00 Dose: 325 mg Insulin Aspart (Novolog) 0 unit SC ACHS [facility]; Protocol Last Admin: 08/09/18 08:30 Dose: Not Given Insulin Detemir (Levemir) 16 unit SC Q12H [facility] Last Admin: 08/08/18 21:39 Dose: Not Given Lamotrigine (Lamictal) 100 mg PO BID [facility] Last Admin: 08/08/18 17:36 Dose: 100 mg Lamotrigine (Lamictal) 50 mg PO BID [facility] Last Admin: 08/08/18 17:36 Dose: 50 mg Metoprolol Tartrate (Lopressor) 25 mg PO Q12 [facility] Last Admin: 08/08/18 21:45 Dose: 25 mg Mirtazapine (Remeron) 15 mg PO HS [facility] Last Admin: 08/08/18 22:26 Dose: 15 mg Pantoprazole Sodium (Protonix Ec Tab) 40 mg PO DAILY [facility] Last Admin: 08/08/18 10:42 Dose: Not Given Rosuvastatin Calcium (Crestor) 2.5 mg PO HS [facility] Last Admin: 08/08/18 21:39 Dose: 2.5 mg Saccharomyces Boulardii (Florastor) 250 mg PO BID [facility] Last Admin: 08/08/18 17:36 Dose: 250 mg Tamsulosin HCl (Flomax) 0.4 mg PO DAILY [facility] Last Admin: 08/08/18 10:39 Dose: Not Given Vitamin B Complex/Vitamin C (Berocca) 1 tab PO DAILY [facility] Last Admin: 08/08/18 10:39 Dose: Not Given - Labs Labs: 08/09/18 06:53 08/09/18 06:53 PT 12.6 SECONDS (9.7-12.2) H 08/06/18 10:26 INR 1.2 08/06/18 10:26 - Constitutional Appears: Well, Non-toxic, No Acute Distress - Head Exam Head Exam: ATRAUMATIC, NORMOCEPHALIC - Eye Exam Eye Exam: EOMI - ENT Exam ENT Exam: Mucous Membranes Moist - Respiratory Exam Respiratory Exam: NORMAL BREATHING PATTERN - Cardiovascular Exam Cardiovascular Exam: REGULAR RHYTHM - GI/Abdominal Exam GI & Abdominal Exam: Soft. absent: Guarding, Tenderness, Rebound - Extremities Exam Additional comments: palpable left PT and dopplerable DP - Neurological Exam Neurological Exam: Alert, Awake, Oriented x3 - Psychiatric Exam Psychiatric exam: Normal Affect, Normal Mood - Skin Skin Exam: Dry, Intact, Normal Color, Warm Assessment and Plan - Assessment and Plan (Free Text) Assessment: 78 yr old male with PVD L SFA stenosis s/p balloon angioplasty and stent placement, POD 1 Plan: -pt with appropriate pulses and perfusion - medical management as per primary - no further surgical intervention needed at this time - please reconsult as necessary - further recs per Dr. Too Hedrick, PGY 1
[2018-08-09] MEDS ORDERED: Ergocalciferol 50,000 Intl Units Cap PO SCH (09:45)
--- NOTE | 2018-08-09 10:46 | VAS ---
DATE: 08/08/2018 PREOPERATIVE DIAGNOSES: Gangrene/ischemic ulceration, left foot. PROCEDURE CARRIED OUT: Aortofemoral angiogram via right groin with selective catheterization of left iliac artery and then two direct puncture, left superficial femoral artery, balloon angioplasty and deployment of 6-mm stent in the left superficial femoral artery. SURGEON: Des Gage Jr., MD MANAGER PUBLIC: None. ANESTHESIOLOGIST: Funmilayo Nolasco CRNA INDICATIONS: The patient is a 78-year-old man with history of left hemispheric stroke, presents with ischemic ulceration of leg. OPERATIVE FINDINGS: We are unable to carry out a CT angiogram previously due to elevated BUN and creatinine. Because of this, we planned for a direct puncture after hydration and appropriate attention to his renal function. Access was obtained via the right groin using ultrasound guidance. We were able to puncture the right common femoral artery, advanced the catheter to the level of the renal arteries and take overlapping films in this level down. Due to the patient's body habitus, it was unable to obtain detail pictures below the level of the knee. The aorta and renal arteries were free of significant occlusive disease; both common iliac, internal iliac and external iliac artery; common femoral arteries and superficial femoral arteries were widely patent in their proximal segments. There was some enlargement of the iliac arteries, but no evidence of an aneurysm. After this had been done, we carried out the angiogram which showed that there is a high grade 90% stenosis in the mid portion of the superficial femoral artery, and below this, the anterior tibial artery was occluded. The tibial perineal trunk was opened, and the posterior tibial artery was the major vessel into the foot. Detailed pictures were not taken on the right side. There was evidence on the left side of a previous knee replacement. Subsequent to this, we attempted to go over the aortic bifurcation and carry out an angiogram from the contralateral side and treatment of this. This was impossible, and we were unable to do this despite using all the devices that were available to do so in different wires. We then carried out a direct puncture of the right superficial femoral artery, and we were able to carry out the procedure. Initially, after crossing the lesion given heparin with a 6-mm balloon, and then after there is evidence of dissection on the films in multiple views, we then deployed a 6-mm stent with excellent cosmetic results. We then deployed a Mynx device in the left groin. The right side was closed with pressure alone. There was extensive prominence related to equipment after we carried out the diagnostic arteriogram, as we are puncturing the right side, the equipment froze. We then had to take a C-arm from the OR to carry out the procedure and this limited some of the availability and some of the images that we were able to take. Nonetheless, we are able to successfully carry out the procedure with the successful deployment and treatment of 90% left superficial femoral artery stenosis. Des Gage Jr., MD cc: Gabbi Lindsay MD
[2018-08-09] MEDS: Insulin Detemir 100 units/ml Vial (Levemir) SC SCH (11:00)
[2018-08-09] MEDS: Saccharomyces Boulardi 250 mg Cap PO SCH ×2 (11:00→17:46)
[2018-08-09] MEDS: Vitamin B Complex/Vitamin C Tab PO SCH (11:00)
[2018-08-09] MEDS: Pantoprazole 40 mg EC Tab PO SCH (11:00)
--- NOTE | 2018-08-09 11:55 | CP.PCM.DIS ---
<LujanRachel P - Last Filed: 08/09/18 22:37> Provider - Provider Date of Admission: 08/08/18 13:41 Attending physician: Jenaro Garcia MD Consults: 08/07/18 14:50 Physician Consult Routine Comment: Consulting Provider: Ezekiel Ibarra Consulting Physician: Ezekiel Ibarra Reason for Consult: Renal failure Time Spent in preparation of Discharge (in minutes): 30 Diagnosis - Discharge Diagnosis (1) PVD (peripheral vascular disease) Status: Acute (2) Acute kidney injury Status: Acute (3) UTI (urinary tract infection) Status: Acute Hospital Course - Lab Results Lab Results: Micro Results 08/06/18 11:25 Urine Random Urine Culture - Final Klebsiella Pneumoniae Ssp Pneu Most Recent Lab Values WBC 6.6 K/uL (4.8-10.8) 08/09/18 06:53 RBC 4.35 Mil/uL (4.40-5.90) L 08/09/18 06:53 Hgb 13.5 g/dL (12.0-18.0) 08/09/18 06:53 Hct 39.9 % (35.0-51.0) 08/09/18 06:53 MCV 91.8 fL (80.0-94.0) 08/09/18 06:53 MCH 31.0 pg (27.0-31.0) 08/09/18 06:53 MCHC 33.8 g/dL (33.0-37.0) 08/09/18 06:53 RDW 13.9 % (11.5-14.5) 08/09/18 06:53 Plt Count 188 K/uL (130-400) 08/09/18 06:53 MPV 7.3 fL (7.2-11.7) 08/09/18 06:53 Neut % (Auto) 58.7 % (50.0-75.0) 08/09/18 06:53 Lymph % (Auto) 26.2 % (20.0-40.0) 08/09/18 06:53 [place] % (Auto) 10.9 % (0.0-10.0) H 08/09/18 06:53 Eos % (Auto) 3.8 % (0.0-4.0) 08/09/18 06:53 Baso % (Auto) 0.4 % (0.0-2.0) 08/09/18 06:53 Neut # (Auto) 3.8 K/uL (1.8-7.0) 08/09/18 06:53 Lymph # (Auto) 1.7 K/uL (1.0-4.3) 08/09/18 06:53 [place] # (Auto) 0.7 K/uL (0.0-0.8) 08/09/18 06:53 Eos # (Auto) 0.2 K/uL (0.0-0.7) 08/09/18 06:53 Baso # (Auto) 0.0 K/uL (0.0-0.2) 08/09/18 06:53 PT 12.6 SECONDS (9.7-12.2) H 08/06/18 10:26 INR 1.2 08/06/18 10:26 Sodium 136 mmol/L (132-148) 08/09/18 06:53 Potassium 4.6 mmol/L (3.6-5.2) 08/09/18 06:53 Chloride 106 mmol/L (98-107) 08/09/18 06:53 Carbon Dioxide 23 mmol/L (22-30) 08/09/18 06:53 Anion Gap 12 (10-20) 08/09/18 06:53 BUN 14 mg/dL (9-20) 08/09/18 06:53 Creatinine 1.5 mg/dL (0.8-1.5) 08/09/18 06:53 Est GFR ( Amer) 55 08/09/18 06:53 Est GFR (Non-Af Amer) 45 08/09/18 06:53 POC Glucose (mg/dL) 231 mg/dL (65-110) H 08/09/18 11:17 Random Glucose 113 mg/dL (75-110) H 08/09/18 06:53 Calcium 8.9 mg/dl (8.6-10.4) 08/09/18 06:53 Phosphorus 2.7 mg/dL (2.5-4.5) 08/09/18 06:53 Magnesium 1.7 mg/dL (1.6-2.3) 08/09/18 06:53 Total Bilirubin 0.5 mg/dL (0.2-1.3) 08/09/18 06:53 AST 29 U/L (17-59) 08/09/18 06:53 ALT 9 U/L (21-72) L D 08/09/18 06:53 Alkaline Phosphatase 63 U/L (38-126) 08/09/18 06:53 Total Protein 7.4 g/dL (6.3-8.3) 08/09/18 06:53 Albumin 3.8 g/dL (3.5-5.0) 08/09/18 06:53 Globulin 3.7 gm/dL (2.2-3.9) 08/09/18 06:53 Albumin/Globulin Ratio 1.0 (1.0-2.1) 08/09/18 06:53 25-OH Vitamin D Total 14.7 NG/ML (30.0-100.0) L 08/08/18 05:09 Urine Color Yellow (YELLOW) 08/06/18 10:26 Urine Clarity Hazy (Clear) 08/06/18 10:26 Urine pH 5.0 (5.0-8.0) 08/06/18 10:26 Ur Specific [place] 1.009 (1.003-1.030) 08/06/18 10:26 Urine Protein Negative mg/dL (NEGATIVE) 08/06/18 10:26 Urine Glucose (UA) 2+ mg/dL (Normal) H 08/06/18 10:26 Urine Ketones Negative mg/dL (NEGATIVE) 08/06/18 10:26 Urine Blood 1+ (NEGATIVE) H 08/06/18 10:26 Urine Nitrate Negative (NEGATIVE) 08/06/18 10:26 Urine Bilirubin Negative (NEGATIVE) 08/06/18 10:26 Urine Urobilinogen Normal mg/dL (0.2-1.0) 08/06/18 10:26 Ur Leukocyte Esterase 3+ Valentina/uL (Negative) H 08/06/18 10:26 Urine WBC (Auto) 153 /hpf (0-5) H 08/06/18 10:26 Urine RBC (Auto) 3 /hpf (0-3) 08/06/18 10:26 Ur Squamous Epith Cells < 1 /hpf (0-5) 08/06/18 10:26 Urine Bacteria Mod (<OCC) H 08/06/18 10:26 U Random Total Protein 233 mg/g creat (22-128) H 08/07/18 08:39 Urine Creatinine 73 mg/dL (20-320) 08/07/18 08:39 Urine Microalbumin 1.3 mg/dL 08/07/18 08:39 Microalb/Creat Ratio 18 (<30) 08/07/18 08:39 Blood Type O POSITIVE 08/06/18 10:26 Antibody Screen Negative 08/06/18 10:26 - Hospital Course Hospital Course: On admisison: Patient is a 78 year old male with 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 Gage. Initially, there was plan by vascular for bilateral LE angiogram outpatient due to PVD. However, due to recent JANETH, decision was made for hospitalization in order to hydrate patient; improve JANETH and perform inpatient angiogram. During this encounter, patient states that he is doing well and has no acute issues. Upon ROS, patient admits to dysuria but denies any symptoms of fever, chills, nausea, vomiting, flank pain, hematuria, chest pain, palpitations, shortness of breath, dizziness, bowel changes. Hospital Course: Patient admitted for PVD intervention. Vascular surgery, Dr. Gage was consulted who took patient for angiogram on 08/08/18 and stented to L iliac artery. Patient was started on Plavix 75mg QD. Patient was found to be in JANETH. Patient was treated with IVF, NS @80mls/hr and mucomyst Q6H. Cr was trended and noted to decrease from 1.9 to 1.5. Renal US was obtained: Echogenic renal parenchyma may be seen in the setting of medical renal disease. 5 mm nonobstructing right lower pole renal calculus. No obstructing calculus or hydronephrosis identified. (see full report) Echo: Mild to moderate concentric LVH. EF 60-65%. Trace MR. Mild Pulm HTN As per Dr. 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 UA: 1+ blood, 3+ LE, 153 WBC. Urine culture grew ESBL+ Klebsiella. After sensitivies resulted, emperic tx was changed to ciprio, which organism shown to be sensitive to. Patient is to continue cipro outpatient. Discharge instructions: Patient stable for discharge as per Dr. Garcia. Patient will continue his home medication and the following new medications: Plavix 75mg PO daily Cipro 500 PO BID until 08/14 he will also need to increase oral fluids for hydration and have Creatinine re- checked. Patient is to follow up with their PMD within one week of discharge. Return to ED for new or worsening symptoms. Discharge Exam - Additional Findings Additional findings: - Constitutional Appears: Non-toxic, No Acute Distress - Head Exam Head Exam: ATRAUMATIC, NORMOCEPHALIC - Eye Exam Eye Exam: EOMI, Normal appearance - ENT Exam ENT Exam: Mucous Membranes Moist - Neck Exam Neck Exam: Full ROM, Normal Inspection - Respiratory Exam Respiratory Exam: Clear to Ausculation Bilateral. absent: Rales, Rhonchi, Wheezes - Cardiovascular Exam Cardiovascular Exam: REGULAR RHYTHM, +S1, +S2 - GI/Abdominal Exam GI & Abdominal Exam: Soft, Normal Bowel Sounds. absent: Distended, Firm, Guarding, Rigid, Tenderness - Extremities Exam Extremities Exam: absent: Calf Tenderness, Full ROM (L sided residual weakness from previous CVA), Normal Inspection (LUE contracted), Pedal Edema Additional comments: Right DP palpable, Left DP not palpable. R groin dressing c/d/i - Neurological Exam Neurological Exam: Alert, Awake, Oriented x3 - Psychiatric Exam Psychiatric exam: Normal Affect, Normal Mood - Skin Skin Exam: Dry, Intact, Normal Color, Warm Discharge Plan - Follow Up Plan Condition: STABLE Disposition: REHAB FACILITY/REHAB UNIT Instructions: Peripheral Vascular (Arterial) Disease (DC), Urinary Tract Infection in Men (DC) Additional Instructions: Patient stable for discharge as per Dr. Garcia. Patient will continue his home medication and the following new medications: Plavix 75mg PO daily Cipro 500 PO BID until 08/14 he will also need to increase oral fluids for hydration and have Creatinine re- checked. Patient is to follow up with their PMD within one week of discharge. Return to ED for new or worsening symptoms. <Jenaro Garcia - Last Filed: 08/10/18 18:06> Provider - Provider Date of Admission: 08/08/18 13:41 Attending physician: Jenaro Garcia MD Consults: 08/07/18 14:50 Physician Consult Routine Comment: Consulting Provider: Ezekiel Ibarra Consulting Physician: Ezekiel Ibarra Reason for Consult: Renal failure Hospital Course - Lab Results Lab Results: Micro Results 08/06/18 11:25 Urine Random Urine Culture - Final Klebsiella Pneumoniae Ssp Pneu Most Recent Lab Values WBC 6.6 K/uL (4.8-10.8) 08/09/18 06:53 RBC 4.35 Mil/uL (4.40-5.90) L 08/09/18 06:53 Hgb 13.5 g/dL (12.0-18.0) 08/09/18 06:53 Hct 39.9 % (35.0-51.0) 08/09/18 06:53 MCV 91.8 fL (80.0-94.0) 08/09/18 06:53 MCH 31.0 pg (27.0-31.0) 08/09/18 06:53 MCHC 33.8 g/dL (33.0-37.0) 08/09/18 06:53 RDW 13.9 % (11.5-14.5) 08/09/18 06:53 Plt Count 188 K/uL (130-400) 08/09/18 06:53 MPV 7.3 fL (7.2-11.7) 08/09/18 06:53 Neut % (Auto) 58.7 % (50.0-75.0) 08/09/18 06:53 Lymph % (Auto) 26.2 % (20.0-40.0) 08/09/18 06:53 [place] % (Auto) 10.9 % (0.0-10.0) H 08/09/18 06:53 Eos % (Auto) 3.8 % (0.0-4.0) 08/09/18 06:53 Baso % (Auto) 0.4 % (0.0-2.0) 08/09/18 06:53 Neut # (Auto) 3.8 K/uL (1.8-7.0) 08/09/18 06:53 Lymph # (Auto) 1.7 K/uL (1.0-4.3) 08/09/18 06:53 [place] # (Auto) 0.7 K/uL (0.0-0.8) 08/09/18 06:53 Eos # (Auto) 0.2 K/uL (0.0-0.7) 08/09/18 06:53 Baso # (Auto) 0.0 K/uL (0.0-0.2) 08/09/18 06:53 PT 12.6 SECONDS (9.7-12.2) H 08/06/18 10:26 INR 1.2 08/06/18 10:26 Sodium 136 mmol/L (132-148) 08/09/18 06:53 Potassium 4.6 mmol/L (3.6-5.2) 08/09/18 06:53 Chloride 106 mmol/L (98-107) 08/09/18 06:53 Carbon Dioxide 23 mmol/L (22-30) 08/09/18 06:53 Anion Gap 12 (10-20) 08/09/18 06:53 BUN 14 mg/dL (9-20) 08/09/18 06:53 Creatinine 1.5 mg/dL (0.8-1.5) 08/09/18 06:53 Est GFR ( Amer) 55 08/09/18 06:53 Est GFR (Non-Af Amer) 45 08/09/18 06:53 POC Glucose (mg/dL) 178 mg/dL (65-110) H 08/09/18 21:02 Random Glucose 113 mg/dL (75-110) H 08/09/18 06:53 Calcium 8.9 mg/dl (8.6-10.4) 08/09/18 06:53 Phosphorus 2.7 mg/dL (2.5-4.5) 08/09/18 06:53 Magnesium 1.7 mg/dL (1.6-2.3) 08/09/18 06:53 Total Bilirubin 0.5 mg/dL (0.2-1.3) 08/09/18 06:53 AST 29 U/L (17-59) 08/09/18 06:53 ALT 9 U/L (21-72) L D 08/09/18 06:53 Alkaline Phosphatase 63 U/L (38-126) 08/09/18 06:53 Total Protein 7.4 g/dL (6.3-8.3) 08/09/18 06:53 Albumin 3.8 g/dL (3.5-5.0) 08/09/18 06:53 Globulin 3.7 gm/dL (2.2-3.9) 08/09/18 06:53 Albumin/Globulin Ratio 1.0 (1.0-2.1) 08/09/18 06:53 25-OH Vitamin D Total 14.7 NG/ML (30.0-100.0) L 08/08/18 05:09 Calcium (PTH Intact) 8.9 mg/dL (8.6-10.3) 08/08/18 08:59 PTH w/Ion &Tot Calcium 133 pg/mL (14-64) H 08/08/18 08:59 Urine Color Yellow (YELLOW) 08/06/18 10:26 Urine Clarity Hazy (Clear) 08/06/18 10:26 Urine pH 5.0 (5.0-8.0) 08/06/18 10:26 Ur Specific [place] 1.009 (1.003-1.030) 08/06/18 10:26 Urine Protein Negative mg/dL (NEGATIVE) 08/06/18 10:26 Urine Glucose (UA) 2+ mg/dL (Normal) H 08/06/18 10:26 Urine Ketones Negative mg/dL (NEGATIVE) 08/06/18 10:26 Urine Blood 1+ (NEGATIVE) H 08/06/18 10:26 Urine Nitrate Negative (NEGATIVE) 08/06/18 10:26 Urine Bilirubin Negative (NEGATIVE) 08/06/18 10:26 Urine Urobilinogen Normal mg/dL (0.2-1.0) 08/06/18 10:26 Ur Leukocyte Esterase 3+ Valentina/uL (Negative) H 08/06/18 10:26 Urine WBC (Auto) 153 /hpf (0-5) H 08/06/18 10:26 Urine RBC (Auto) 3 /hpf (0-3) 08/06/18 10:26 Ur Squamous Epith Cells < 1 /hpf (0-5) 08/06/18 10:26 Urine Bacteria Mod (<OCC) H 08/06/18 10:26 U Random Total Protein 233 mg/g creat (22-128) H 08/07/18 08:39 Urine Creatinine 73 mg/dL (20-320) 08/07/18 08:39 Urine Microalbumin 1.3 mg/dL 08/07/18 08:39 Microalb/Creat Ratio 18 (<30) 08/07/18 08:39 Blood Type O POSITIVE 08/06/18 10:26 Antibody Screen Negative 08/06/18 10:26 Attending/Attestation - Attestation I have personally seen and examined this patient.: Yes I have fully participated in the care of the patient.: Yes I have reviewed all pertinent clinical information, including history, physical exam and plan: Yes
[2018-08-09] MEDS ORDERED: Pneumococcal 23-Valent Vaccine IM ONE (13:30)
[2018-08-09] MEDS ORDERED: Ciprofloxacin 400mg/200ml D5W 400 MG/200 ML BAG IVPB SCH (14:00)
[2018-08-09 16:01] VITALS: BP 162/76; PULSE 86; TEMP 98.6
--- NOTE | 2018-08-09 18:02 | CP.PCM.PN ---
Subjective - Date & Time of Evaluation Date of Evaluation: 08/09/18 Time of Evaluation: 07:40 - Subjective Subjective: Nephro Progress Note for Dr. Stacey Gudino DO PGY-3 Patient seen and examined at bedside on the floors. S/p angiogram of bilateral LE yesterday, s/p stent placement. Resting comfortably at time of exam. Denies chest pain, shortness of breath, nausea, emesis, dysuria, hematuria. Reports urinating freely and frequently. Objective - Vital Signs/Intake and Output Vital Signs (last 24 hours): Temp Pulse Resp BP Pulse Ox 98.6 F 86 20 162/76 H 95 08/09/18 16:00 08/09/18 16:00 08/09/18 16:00 08/09/18 16:00 08/09/18 16:00 Intake and Output: 08/09/18 08/09/18 06:59 18:59 Intake Total 1700 480 Output Total 400 Balance 1300 480 - Medications Medications: Current Medications Acetylcysteine (Acetylcysteine 20%) 4 ml INH RQ6 [facility] Last Admin: 08/09/18 13:48 Dose: Not Given Albuterol/Ipratropium (Duoneb 3 Mg/0.5 Mg (3 Ml) Ud) 3 ml INH RQ6 [facility] Last Admin: 08/09/18 13:48 Dose: 3 ml Amlodipine Besylate (Norvasc) 5 mg PO DAILY [facility] Last Admin: 08/09/18 11:00 Dose: 5 mg Ciprofloxacin (Cipro) 500 mg PO BID [facility]; Protocol Last Admin: 08/09/18 17:46 Dose: 500 mg Clopidogrel Bisulfate (Plavix) 75 mg PO DAILY [facility] Last Admin: 08/09/18 11:00 Dose: 75 mg Docusate Sodium (Colace) 100 mg PO BID [facility] Last Admin: 08/09/18 17:46 Dose: 100 mg Ergocalciferol (Drisdol 50,000 Intl Units Cap) 1 cap PO Q7D [facility] Last Admin: 08/09/18 11:00 Dose: 1 cap Escitalopram Oxalate (Lexapro) 10 mg PO DAILY [facility] Last Admin: 08/09/18 11:00 Dose: 10 mg Ferrous Sulfate (Feosol) 325 mg PO BID [facility] Last Admin: 08/09/18 17:46 Dose: 325 mg Insulin Aspart (Novolog) 0 unit SC ACHS [facility]; Protocol Last Admin: 08/09/18 17:43 Dose: Not Given Insulin Detemir (Levemir) 16 unit SC Q12H [facility] Last Admin: 08/09/18 11:00 Dose: 16 units Lamotrigine (Lamictal) 100 mg PO BID [facility] Last Admin: 08/09/18 17:48 Dose: 100 mg Lamotrigine (Lamictal) 50 mg PO BID [facility] Last Admin: 08/09/18 17:48 Dose: 50 mg Metoprolol Tartrate (Lopressor) 25 mg PO Q12 [facility] Last Admin: 08/09/18 11:00 Dose: 25 mg Mirtazapine (Remeron) 15 mg PO [facility] Last Admin: 08/08/18 22:26 Dose: 15 mg Pantoprazole Sodium (Protonix Ec Tab) 40 mg PO DAILY [facility] Last Admin: 08/09/18 11:00 Dose: 40 mg Pneumococcal Polyvalent Vaccine (Pneumovax 23 Vaccine) 0.5 ml IM .ONCE ONE Stop: 08/10/18 10:01 Rosuvastatin Calcium (Crestor) 2.5 mg PO [facility] Last Admin: 08/08/18 21:39 Dose: 2.5 mg Saccharomyces Boulardii (Florastor) 250 mg PO BID [facility] Last Admin: 08/09/18 17:46 Dose: 250 mg Tamsulosin HCl (Flomax) 0.4 mg PO DAILY [facility] Last Admin: 08/09/18 11:00 Dose: 0.4 mg Vitamin B Complex/Vitamin C (Berocca) 1 tab PO DAILY [facility] Last Admin: 08/09/18 11:00 Dose: 1 tab - Labs Labs: 08/09/18 06:53 08/09/18 06:53 PT 12.6 SECONDS (9.7-12.2) H 08/06/18 10:26 INR 1.2 08/06/18 10:26 - Constitutional Appears: Non-toxic, No Acute Distress - Head Exam Head Exam: ATRAUMATIC, NORMAL INSPECTION, NORMOCEPHALIC - Eye Exam Eye Exam: Normal appearance. absent: Conjunctival injection, Scleral icterus Pupil Exam: absent: Irregular, Unequal - ENT Exam ENT Exam: Mucous Membranes Moist - Neck Exam Neck Exam: Full ROM, Normal Inspection - Respiratory Exam Respiratory Exam: Clear to Ausculation Bilateral, NORMAL BREATHING PATTERN. absent: Accessory Muscle Use, Chest Wall Tenderness, Decreased Breath Sounds, Rales, Rhonchi, Wheezes - Cardiovascular Exam Cardiovascular Exam: REGULAR RHYTHM, RRR, +S1, +S2. absent: Bradycardia, Tachycardia, Irregular Rhythm, JVD - GI/Abdominal Exam GI & Abdominal Exam: Soft, Normal Bowel Sounds. absent: Distended, Firm, Guarding, Rigid, Tenderness - Extremities Exam Extremities Exam: absent: Calf Tenderness, Pedal Edema, Tenderness Additional comments: mildly cool to palpation at feet, but otherwise normal temp bilaterally smooth/waxy skin up to knees +1 dorsalis pedis pulses bilaterally no pitting edema appreciated - Neurological Exam Neurological Exam: Alert, Awake Additional comments: moves all extremities spontaneously and on command - Psychiatric Exam Psychiatric exam: Normal Affect, Normal Mood - Skin Skin Exam: Dry, Intact, Normal Color, Warm Assessment and Plan - Assessment and Plan (Free Text) Assessment: This is a 78 yo M with PMH of CVA (2009) with left-sided weakness, diabetes, s eizures, HTN, HLD, BPH, gastritis, depression, and anemia who presented for medical optimization for bilateral LE angiogram due to elevated creatinine. Nephro was consulted for JANETH and renal optimization. Plan: 1) CVA w/ residual left-sided weakness 2) diabetes 3) seizures 4) HTN 5) HLD 6) BPH 7) JANETH overlying CKD -CKD etiology likely nephrotic 2/2 HTN +/- DM -JANETH resolved, Cr 1.5 x2 days (baseline as per prior charting) -tolerating PO well, Cr back to baseline, no longer requires IVF -continue home BP regimen of norvasc/metoprolol Patient seen and reviewed with attending, Dr Ibarra
[2018-08-10] MEDS ORDERED: Pneumococcal 23-Valent Vaccine IM ONE (10:00)
== END 2018-08-09 21:25 | DRG 253 ==
LOC: C.ER 09:18 → C.3T 11:01 → OBSVTOIN 08-08 13:41
PROVIDERS: ADMIT Internal Medicine; ATTEND Internal Medicine
PROC: 047L3DZ Dilation of Left Femoral Artery with Intraluminal Device, Percutaneous Approach (ICD-10-PCS; principal; 2018-08-08)
DX: E11.52 Type 2 diabetes mellitus with diabetic peripheral angiopathy with gangrene (principal); I96 Gangrene, not elsewhere classified; N17.9 Acute kidney failure, unspecified; N39.0 Urinary tract infection, site not specified; E78.5 Hyperlipidemia, unspecified; E86.0 Dehydration; F03.90 Unspecified dementia, unspecified severity, without behavioral disturbance, psychotic disturbance, mood disturbance, and anxiety; F32.9 Major depressive disorder, single episode, unspecified; G20 Parkinson's disease; I70.202 Unspecified atherosclerosis of native arteries of extremities, left leg; K59.00 Constipation, unspecified; L97.529 Non-pressure chronic ulcer of other part of left foot with unspecified severity; N18.3 Chronic kidney disease, stage 3 (moderate); N40.0 Benign prostatic hyperplasia without lower urinary tract symptoms; Z72.0 Tobacco use; Z79.4 Long term (current) use of insulin; Z96.659 Presence of unspecified artificial knee joint; I12.9 Hypertensive chronic kidney disease with stage 1 through stage 4 chronic kidney disease, or unspecified chronic kidney disease; E11.621 Type 2 diabetes mellitus with foot ulcer; D64.9 Anemia, unspecified